=== PATIENT | female | born 1965 | race African-American/Black ===

== ENCOUNTER 2017-01-22 09:01 | Inpatient (IN) | payer OTHER ==
[2017-01-22 10:52] VITALS: BMI 19.6
--- NOTE | 2017-01-22 13:29 | HP ---
CIWA Score - CIWA Score Nausea/Vomitin-No Nausea/No Vomiting Muscle Tremors: 4-Moderate,w/Arms Extend Anxiety: 3 Agitation: 4-Moderately Restless Paroxysmal Sweats: 3 Orientation: 0-Oriented Tacttile Disturbances: 0-None Auditory Disturbances: 0-None Visual Disturbances: 0-None Headache: 1-Very Mild CIWA-Ar Total Score: 15 Admission ROS BHS - HPI Chief Complaint: I need to stop using and was 3yrs clean and need to have my life back. Allergies/Adverse Reactions: Allergies Allergy/AdvReac Type Severity Reaction Status Date / Time No Known Allergies Allergy Verified 01/22/17 11:39 History of Present Illness: pt is a 51yr old female with a history of alcohol and cocaine dependence seeking detox for treatment. Exam Limitations: Physical Impairment (b/l bunion to feet) - Ebola screening Have you traveled outside of the country in the last 21 days: No Have you had contact with anyone from an Ebola affected area: No Have you been sick,other than usual withdrawal symptoms: No Do you have a fever: No - Review of Systems Constitutional: Chills, Diaphoresis, Loss of Appetite, Night Sweats, Changes in sleep EENT: reports: Tearing, Nose Congestion Respiratory: reports: Cough Cardiac: reports: No Symptoms Reported GI: reports: Diarrhea, Poor Appetite, Poor Fluid Intake : reports: No Symptoms Reported Musculoskeletal: reports: Back Pain, Joint Pain, Muscle Pain Integumentary: reports: Flushing, Sweating Neuro: reports: Headache, Tingling, Tremors Endocrine: reports: Excessive Sweating, Flushing, Intolerance to Cold, Intolerance to Heat Hematology: reports: No Symptoms Reported Psychiatric: reports: Judgement Intact, Mood/Affect Appropiate, Orientated x3, Agitated, Anxious Other Systems: Reviewed and Negative Patient History - Patient Medical History Hx Anemia: No Hx Asthma: No Hx Chronic Obstructive Pulmonary Disease (COPD): No Hx Cancer: No Hx Cardiac Disorders: No Hx Hypertension: Yes (non compliant with meds.) Hx Hypercholesterolemia: No Hx Pacemaker: No HX Cerebrovascular Accident: No Hx Seizures: No Hx Dementia: No Hx Diabetes: No Hx Gastrointestinal Disorders: No Hx Liver Disease: No Hx Genitourinary Disorders: No Hx Sexually Transmitted Disorders: No Hx Renal Disease (ESRD): No Hx Thyroid Disease: No Hx Human Immunodeficiency Virus (HIV): No (negative) Hx Hepatitis C: No (negative) Hx Depression: Yes Hx Suicide Attempt: No (denies) Hx Bipolar Disorder: No Hx Schizophrenia: No - Patient Surgical History Past Surgical History: Yes Hx Abdominal Surgery: Yes (total hysterectomy in 2015 fibroids) Other Surgical History: R knee sx - PPD History Previous Implant?: Yes Documented Results: Positive w/o proof Implanted On Prior [facility] Admission?: No PPD to be Administered?: No - Reproductive History Patient is a Female of Child Bearing Age (11 -55 yrs old): No Patient : No - Smoking Cessation Smoking history: Current every day smoker Have you smoked in the past 12 months: Yes Aproximately how many cigarettes per day: 2 Hx Chewing Tobacco Use: No Initiated information on smoking cessation: Yes 'Breaking Loose' booklet given: 01/22/17 - Substance & Tx. History Hx Alcohol Use: Yes Hx Substance Use: Yes Substance Use Type: Alcohol, Cocaine Hx [facility] [address] [facility] - Substances Abused Alcohol Route: Oral Frequency: Daily Amount used: 2-3 pints vodka/ 2-3 40 oz beers Age of first use: 19 Date of Last Use: 01/21/17 Cocaine Route: Smoking Frequency: Daily Amount used: $100 Age of first use: 19 Date of Last Use: 01/21/17 Family Disease History - Family Disease History Family History: Denies Admission Physical Exam BHS - Vital Signs Vital Signs: Vital Signs - 24 hr 01/22/17 10:47 Temperature 96 F L Pulse Rate 90 Respiratory 16 Rate Blood Pressure 147/94 - Physical General Appearance: Yes: Appropriately Dressed, Moderate Distress, Thin, Tremorous, Irritable, Sweating, Anxious HEENTM: Yes: Normal Voice, Nasal Congestion, Rhinorrhea Respiratory: Yes: Lungs Clear, Normal Breath Sounds, No Respiratory Distress Neck: Yes: No masses,lesions,Nodules Breast: Yes: Within Normal Limits Cardiology: Yes: Regular Rhythm, Regular Rate, S1, S2 Abdominal: Yes: Normal Bowel Sounds, Non Tender, Soft Genitourinary: Yes: Within Normal Limits Back: Yes: Normal Inspection Musculoskeletal: Yes: full range of Motion Extremities: Yes: Normal Capillary Refill, Normal Inspection, Tremors Neurological: Yes: Fully Oriented, Alert, Normal Response Integumentary: Yes: Normal Color, Diaphoresis Lymphatic: Yes: Within Normal Limits - Diagnostic (1) Alcohol dependence with uncomplicated withdrawal Current Visit: Yes Status: Chronic (2) Bilateral bunions Current Visit: Yes Status: Chronic (3) Hypertension Current Visit: Yes Status: Chronic Qualifiers: Hypertension type: essential hypertension Qualified Code(s): I10 - Essential (primary) hypertension; I10 - Essential (primary) hypertension; I10 - Essential (primary) hypertension (4) Tinea pedis Current Visit: Yes Status: Acute Qualifiers: Laterality: bilateral Qualified Code(s): B35.3 - Tinea pedis; B35.3 - Tinea pedis Cleared for Admission S - Detox or Rehab [facility] Level of Care: Medically Managed Detox Regimen/Protocol: Librium [facility] Breath Alcohol Content Breath Alcohol Content: 0 Urine Pregancy Test - Result Urine Test Results: Negative- NO Line Present Urine Drug Screen - Results Drug Screen Negative: No Urine Drug Screen Results: THC-Marijuana, ELI-Cocaine, BZO-Benzodiazepines
[2017-01-22] MEDS ORDERED: diphenhydrAMINE HCL 50 MG CAPSULE PO PRN (13:30)
[2017-01-22] MEDS ORDERED: chlordiazePOXIDE HCL 25 MG CAPSULE PO PRN (13:30)
[2017-01-22] MEDS ORDERED: MAGNESIUM CITRATE 300 ML BOTTLE PO PRN (13:30)
[2017-01-22] MEDS ORDERED: ACETAMINOPHEN 325 MG TABLET (FP) PO PRN (13:30)
[2017-01-22] MEDS ORDERED: MAGNESIUM HYDROX 2400MG/30ML ORAL SUSPENSION 30 ML CUP PO PRN (13:30)
[2017-01-22] MEDS ORDERED: MENTHOL/PHENOL 1 EACH UD MM PRN (13:30)
[2017-01-22] MEDS ORDERED: NICOTINE POLACRILEX 4 MG GUM BUC PRN (13:30)
[2017-01-22] MEDS ORDERED: LOPERAMIDE HCL 2 MG CAPSULE PO PRN (13:30)
[2017-01-22] MEDS ORDERED: chlordiazePOXIDE HCL 25 MG CAPSULE PO ONE (14:11)
[2017-01-22] MEDS: LISINOPRIL 10 MG TABLET (FP) PO SCH (14:26)
[2017-01-22] MEDS: chlordiazePOXIDE HCL 25 MG CAPSULE PO SCH ×3 (16:47→22:14)
[2017-01-22] MEDS: IBUPROFEN 400 MG TABLET (FP) PO PRN (18:52)
[2017-01-22] MEDS: THIAMINE HCL 100 MG TABLET (FP) PO SCH (22:14)
[2017-01-22] MEDS: guaiFENesin/D-METHORPHAN HB 10 ML UNIT-DOSE CUPS PO PRN (22:14)
[2017-01-23] MEDS: P-EPHED 60MG/TRIPROLIDI 2.5MG TABLET PO PRN ×3 (01:04→10:48)
[2017-01-23] MEDS: chlordiazePOXIDE HCL 25 MG CAPSULE PO SCH ×4 (05:45→22:19)
[2017-01-23] MEDS: guaiFENesin/D-METHORPHAN HB 10 ML UNIT-DOSE CUPS PO PRN (05:47)
[2017-01-23 10:13] LABS: MCH 30.6 pg (25.7-33.7); MCHC 32.1 g/dl (32.0-36.0); MEAN CELL VOLUME 95.3 fl (80-96); MEAN PLT VOLUME 9.2 fl (7.5-11.1); PLATELET COUNT 280 K/MM3 (134-434); RDW 14.4 % (11.6-15.6); WHITE BLOOD COUNT 6.2 K/mm3 (4.0-10.0)
[2017-01-23 10:14] LABS: ANION GAP 7 (8-16); BILIRUBIN,TOTAL 0.5 mg/dL (0.2-1.0); CALCIUM 8.7 mg/dL (8.5-10.1); CO2 28 mmol/L (21-32); CREATININE 0.6 mg/dL (0.55-1.02); GLUCOSE,RANDOM 83 mg/dL (74-106); SGOT/AST 21 U/L (15-37); SGPT/ALT 23 U/L (12-78); TOT PROT 6.3 g/dl (6.4-8.2)
[2017-01-23 10:15] LABS: ALK PHOS 75 U/L (45-117)
[2017-01-23 10:18] LABS: URINE APPEARANCE SLCLOUDY; URINE BILIRUBIN NEGATIVE (NEGATIVE); URINE BLOOD 2+ (NEGATIVE); URINE COLOR YELLOW; URINE GLUCOSE (UA) NEGATIVE (NEGATIVE); URINE KETONE NEGATIVE (NEGATIVE); URINE NITRITE NEGATIVE (NEGATIVE); URINE PROTEIN NEGATIVE (NEGATIVE); URINE UROBILINOGEN NEGATIVE mg/dL (0.2-1.0)
[2017-01-23 10:39] LABS: URINE MUCUS RARE; URINE RBC 31 /hpf (0-3); URINE WBC 8 /hpf (3-5)
[2017-01-23] MEDS: LISINOPRIL 10 MG TABLET (FP) PO SCH (10:48)
[2017-01-23] MEDS: PRENATAL VITAMINS W/ FOLIC ACID TABLET (FP) PO SCH (10:48)
--- NOTE | 2017-01-23 11:23 | PN ---
S CIWA - CIWA Score Nausea/Vomitin-No Nausea/No Vomiting Muscle Tremors: 4-Moderate,w/Arms Extend Anxiety: 3 Agitation: 4-Moderately Restless Paroxysmal Sweats: 3 Orientation: 0-Oriented Tacttile Disturbances: 0-None Auditory Disturbances: 0-None Visual Disturbances: 0-None Headache: 0-None Present CIWA-Ar Total Score: 14 BHS Progress Note (SOAP) Subjective: shakes sweats interrupted sleep agitation body aches Objective: 01/23/17 11:22 Vital Signs Temperature 97.7 F 01/23/17 09:31 Pulse Rate 89 01/23/17 09:31 Respiratory Rate 16 01/23/17 09:31 Blood Pressure 129/91 01/23/17 09:31 O2 Sat by Pulse Oximetry (%) Laboratory Tests 01/23/17 01/23/17 01/23/17 07:00 07:00 08:00 WBC 6.2 RBC 4.17 Hgb 12.8 Hct 39.7 MCV 95.3 MCH 30.6 MCHC 32.1 RDW 14.4 Plt Count 280 MPV 9.2 Sodium 138 Potassium 4.4 Chloride 103 Carbon Dioxide 28 Anion Gap 7 L BUN 8 Creatinine 0.6 Creat Clearance w eGFR > 60 Random Glucose 83 Calcium 8.7 Total Bilirubin 0.5 AST 21 ALT 23 Alkaline Phosphatase 75 Total Protein 6.3 L Albumin 3.0 L Urine Color Yellow Urine Appearance Slcloudy Urine pH 6.0 Urine Protein Negative Urine Glucose (UA) Negative Urine Ketones Negative Urine Blood 2+ H Urine Nitrite Negative Urine Bilirubin Negative Urine Urobilinogen Negative Urine RBC 31 Urine WBC 8 Ur Epithelial Cells Rare Urine Mucus Rare aaox3 ambulating no acute distress Assessment: 01/23/17 11:23 withdrawal sx Plan: continue detox increase fluids
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
[2017-01-23] MEDS: GABAPENTIN 300 MG CAPSULE (FP) PO SCH ×2 (12:01→22:19)
[2017-01-23] MEDS: VITAMINS A AND D TOPICAL OINTMENT 60 GM TUBE TP SCH ×3 (12:02→23:11)
[2017-01-23] MEDS: MAG HYDROX/AL HYDROX/SIMETH 30 ML UNIT-DOSE CUP PO PRN (14:11)
[2017-01-23 18:25] LABS: URINE LEUK ESTERASE Negative (NEGATIVE)
[2017-01-23] MEDS: THIAMINE HCL 100 MG TABLET (FP) PO SCH (22:19)
[2017-01-23] MEDS: QUEtiapine FUMARATE 100 MG TABLET (FP) PO SCH (22:21)
[2017-01-24] MEDS: chlordiazePOXIDE HCL 25 MG CAPSULE PO SCH ×2 (06:03→10:42)
[2017-01-24] MEDS: VITAMINS A AND D TOPICAL OINTMENT 60 GM TUBE TP SCH ×3 (06:03→17:38)
[2017-01-24] MEDS: IBUPROFEN 400 MG TABLET (FP) PO PRN ×2 (06:06→15:18)
--- NOTE | 2017-01-24 09:53 | PN ---
[facility] CIWA - CIWA Score Nausea/Vomitin-No Nausea/No Vomiting Muscle Tremors: 3 Anxiety: 3 Agitation: 4-Moderately Restless Paroxysmal Sweats: 2 Orientation: 0-Oriented Tacttile Disturbances: 0-None Auditory Disturbances: 0-None Visual Disturbances: 1-Very Mild Sensitivity Headache: 0-None Present CIWA-Ar Total Score: 13 S Progress Note (SOAP) Subjective: Alert, Interrupted sleep, night sweats, body aches, anxiety, restless Objective: 01/24/17 09:51 Vital Signs Temperature 97.0 F L 01/24/17 06:30 Pulse Rate 92 H 01/24/17 06:30 Respiratory Rate 16 01/24/17 06:30 Blood Pressure 109/78 01/24/17 06:30 O2 Sat by Pulse Oximetry (%) Laboratory Last Values WBC 6.2 K/mm3 (4.0-10.0) 01/23/17 07:00 RBC 4.17 M/mm3 (3.60-5.2) 01/23/17 07:00 Hgb 12.8 GM/dL (10.7-15.3) 01/23/17 07:00 Hct 39.7 % (32.4-45.2) 01/23/17 07:00 MCV 95.3 fl (80-96) 01/23/17 07:00 MCH 30.6 pg (25.7-33.7) 01/23/17 07:00 MCHC 32.1 g/dl (32.0-36.0) 01/23/17 07:00 RDW 14.4 % (11.6-15.6) 01/23/17 07:00 Plt Count 280 K/MM3 (134-434) 01/23/17 07:00 MPV 9.2 fl (7.5-11.1) 01/23/17 07:00 Sodium 138 mmol/L (136-145) 01/23/17 07:00 Potassium 4.4 mmol/L (3.5-5.1) 01/23/17 07:00 Chloride 103 mmol/L (98-107) 01/23/17 07:00 Carbon Dioxide 28 mmol/L (21-32) 01/23/17 07:00 Anion Gap 7 (8-16) L 01/23/17 07:00 BUN 8 mg/dL (7-18) 01/23/17 07:00 Creatinine 0.6 mg/dL (0.55-1.02) 01/23/17 07:00 Creat Clearance w eGFR > 60 (>60) 01/23/17 07:00 Random Glucose 83 mg/dL (74-106) 01/23/17 07:00 Calcium 8.7 mg/dL (8.5-10.1) 01/23/17 07:00 Total Bilirubin 0.5 mg/dL (0.2-1.0) 01/23/17 07:00 AST 21 U/L (15-37) 01/23/17 07:00 ALT 23 U/L (12-78) 01/23/17 07:00 Alkaline Phosphatase 75 U/L (45-117) 01/23/17 07:00 Total Protein 6.3 g/dl (6.4-8.2) L 01/23/17 07:00 Albumin 3.0 g/dl (3.4-5.0) L 01/23/17 07:00 Urine Color Yellow 01/23/17 08:00 Urine Appearance Slcloudy 01/23/17 08:00 Urine pH 6.0 (5.0-8.0) 01/23/17 08:00 Ur Specific [place] 1.025 (1.005-1.025) 01/23/17 08:00 Urine Protein Negative (NEGATIVE) 01/23/17 08:00 Urine Glucose (UA) Negative (NEGATIVE) 01/23/17 08:00 Urine Ketones Negative (NEGATIVE) 01/23/17 08:00 Urine Blood 2+ (NEGATIVE) H 01/23/17 08:00 Urine Nitrite Negative (NEGATIVE) 01/23/17 08:00 Urine Bilirubin Negative (NEGATIVE) 01/23/17 08:00 Urine Urobilinogen Negative mg/dL (0.2-1.0) 01/23/17 08:00 Ur Leukocyte Esterase Negative (NEGATIVE) 01/23/17 08:00 Urine RBC 31 /hpf (0-3) 01/23/17 08:00 Urine WBC 8 /hpf (3-5) 01/23/17 08:00 Ur Epithelial Cells Rare /hpf (FEW) 01/23/17 08:00 Urine Mucus Rare 01/23/17 08:00 RPR Titer Nonreactive (NONREACTIVE) 01/23/17 07:00 Labs noted. Oral fluid intake encouraged. Assessment: 01/24/17 09:53 Withdrawal sx Plan: Continue detox Increased fluid intake encouraged
--- NOTE | 2017-01-24 10:07 | EKG ---
Test Reason : Blood Pressure : / mmHG Vent. Rate : 076 BPM Atrial Rate : 076 BPM P-R Int : 136 ms QRS Dur : 084 ms QT Int : 400 ms P-R-T Axes : 044 034 046 degrees QTc Int : 450 ms NORMAL SINUS RHYTHM NORMAL ECG NO PREVIOUS ECGS AVAILABLE Confirmed by CORRINA CALIXTO, FELICIA ([id number]) on 01/24/2017 10:07:20 AM Referred By: Confirmed By:FELICIA HOUSER MD
[2017-01-24] MEDS: GABAPENTIN 300 MG CAPSULE (FP) PO SCH ×2 (10:42→22:03)
[2017-01-24] MEDS: LISINOPRIL 10 MG TABLET (FP) PO SCH (10:42)
[2017-01-24] MEDS: PRENATAL VITAMINS W/ FOLIC ACID TABLET (FP) PO SCH (10:42)
[2017-01-24] MEDS: TOLNAFTATE 1% CREAM 15 GM TUBE TP SCH ×2 (10:43→23:00)
[2017-01-24] MEDS: guaiFENesin/D-METHORPHAN HB 10 ML UNIT-DOSE CUPS PO PRN (10:46)
[2017-01-24] MEDS: P-EPHED 60MG/TRIPROLIDI 2.5MG TABLET PO PRN ×2 (10:47→22:05)
[2017-01-24] MEDS: chlordiazePOXIDE 5 MG CAPSULE PO SCH ×2 (17:20→22:02)
[2017-01-24] MEDS: THIAMINE HCL 100 MG TABLET (FP) PO SCH (22:02)
[2017-01-24] MEDS: QUEtiapine FUMARATE 100 MG TABLET (FP) PO SCH (22:03)
[2017-01-25] MEDS: VITAMINS A AND D TOPICAL OINTMENT 60 GM TUBE TP SCH ×5 (00:20→23:16)
[2017-01-25] MEDS: chlordiazePOXIDE 5 MG CAPSULE PO SCH ×2 (06:03→10:23)
[2017-01-25] MEDS: SODIUM CHLORIDE NASAL SPRAY 44 ML BOTTLE NS PRN ×2 (06:05→17:35)
[2017-01-25] MEDS: P-EPHED 60MG/TRIPROLIDI 2.5MG TABLET PO PRN ×2 (06:10→17:35)
--- NOTE | 2017-01-25 09:35 | PN ---
BHS Progress Note (SOAP) Subjective: feeling so much better little anxiety Objective: 01/25/17 09:36 Vital Signs Temperature 97.3 F L 01/25/17 06:00 Pulse Rate 97 H 01/25/17 06:00 Respiratory Rate 18 01/25/17 06:00 Blood Pressure 109/83 01/25/17 06:00 O2 Sat by Pulse Oximetry (%) aaox3 ambulating no acute distress Assessment: 01/25/17 09:36 withdrawal sx Plan: continue detox increase fluids d/c in am
[2017-01-25] MEDS: LISINOPRIL 10 MG TABLET (FP) PO SCH (10:23)
[2017-01-25] MEDS: PRENATAL VITAMINS W/ FOLIC ACID TABLET (FP) PO SCH (10:23)
[2017-01-25] MEDS: hydrOXYzine PAMOATE 50 MG CAPSULE (FP) PO PRN ×2 (10:23→18:12)
[2017-01-25] MEDS: GABAPENTIN 300 MG CAPSULE (FP) PO SCH ×2 (10:23→22:22)
[2017-01-25] MEDS: TOLNAFTATE 1% CREAM 15 GM TUBE TP SCH ×2 (10:24→22:23)
[2017-01-25] MEDS: chlordiazePOXIDE HCL 10 MG CAPSULE PO SCH ×2 (16:26→22:22)
[2017-01-25] MEDS: MAG HYDROX/AL HYDROX/SIMETH 30 ML UNIT-DOSE CUP PO PRN (16:27)
[2017-01-25] MEDS: IBUPROFEN 400 MG TABLET (FP) PO PRN (17:35)
[2017-01-25] MEDS: QUEtiapine FUMARATE 100 MG TABLET (FP) PO SCH (22:22)
[2017-01-25] MEDS: THIAMINE HCL 100 MG TABLET (FP) PO SCH (22:23)
[2017-01-26] MEDS: chlordiazePOXIDE HCL 10 MG CAPSULE PO SCH ×2 (05:58→11:16)
[2017-01-26] MEDS: VITAMINS A AND D TOPICAL OINTMENT 60 GM TUBE TP SCH ×2 (05:59→11:17)
[2017-01-26] MEDS: P-EPHED 60MG/TRIPROLIDI 2.5MG TABLET PO PRN (06:13)
[2017-01-26] MEDS: PRENATAL VITAMINS W/ FOLIC ACID TABLET (FP) PO SCH (09:25)
[2017-01-26] MEDS: GABAPENTIN 300 MG CAPSULE (FP) PO SCH (09:25)
[2017-01-26] MEDS: LISINOPRIL 10 MG TABLET (FP) PO SCH (09:25)
[2017-01-26] MEDS: TOLNAFTATE 1% CREAM 15 GM TUBE TP SCH (09:27)
[2017-01-26 09:42] VITALS: BP 144/91; PULSE 89; TEMP 98.5
--- NOTE | 2017-01-26 10:09 | DS ---
[facility] Detox Discharge Summary Admission Date: 01/22/17 Discharge Date: 01/26/17 - History Present History: Alcohol Dependence, Cannabis Dependence - Physical Exam Results Vital Signs: Vital Signs Temperature 98.5 F 01/26/17 09:41 Pulse Rate 89 01/26/17 09:41 Respiratory Rate 19 01/26/17 09:41 Blood Pressure 144/91 01/26/17 09:41 O2 Sat by Pulse Oximetry (%) - Treatment Hospital Course: Detox Protocol Followed, Detoxed Safely, Responded well, Discharged Condition Good, Rehab Referral Accepted - Medication Discharge Medications: Ambulatory Orders Gabapentin [Neurontin] 600 mg PO BID 01/22/17 Lisinopril 10 mg PO DAILY 01/22/17 Quetiapine Fumarate [Seroquel] 100 mg PO HS #30 tablet 01/23/17 - Diagnosis (1) Alcohol dependence with uncomplicated withdrawal Current Visit: Yes Status: Chronic (2) Bilateral bunions Current Visit: Yes Status: Chronic (3) Hypertension Current Visit: Yes Status: Chronic Qualifiers: Hypertension type: essential hypertension Qualified Code(s): I10 - Essential (primary) hypertension; I10 - Essential (primary) hypertension; I10 - Essential (primary) hypertension (4) Tinea pedis Current Visit: Yes Status: Chronic Qualifiers: Laterality: bilateral Qualified Code(s): B35.3 - Tinea pedis; B35.3 - Tinea pedis - AMA Did Patient Leave Against Medical Advice: No (rehab at [facility])
== END 2017-01-26 11:55 | disposition home or self-care (01) | DRG 774 ==
LOC: YASAS 09:01 → Y6N 12:25
PROVIDERS: ADMIT Internal Medicine; ATTEND Internal Medicine
PROC: HZ2ZZZZ Detoxification Services for Substance Abuse Treatment (ICD-10-PCS; principal; 2017-01-22)
DX: F10.230 Alcohol dependence with withdrawal, uncomplicated (principal); F14.20 Cocaine dependence, uncomplicated; F12.20 Cannabis dependence, uncomplicated; F17.210 Nicotine dependence, cigarettes, uncomplicated; F19.24 Other psychoactive substance dependence with psychoactive substance-induced mood disorder; I10 Essential (primary) hypertension; B35.3 Tinea pedis; G47.00 Insomnia, unspecified; M21.612 Bunion of left foot; M21.611 Bunion of right foot; Z91.14 Patient's other noncompliance with medication regimen; Z90.710 Acquired absence of both cervix and uterus; Z59.0 Homelessness
CPT/HCPCS: 36415; 71020-TC; 80053; 81003; 81015; 85027; 86593; 93005; 93010

== ENCOUNTER 2017-04-21 10:53 | Inpatient (IN) | payer OTHER ==
[2017-04-21 11:50] VITALS: BMI 20.5
--- NOTE | 2017-04-21 13:05 | HP ---
CIWA Score - CIWA Score Nausea/Vomitin-Mild Nausea/No Vomiting Muscle Tremors: 3 Anxiety: 4-Mod. Anxious/Guarded Agitation: 1-Slight > Activity Paroxysmal Sweats: No Perspiration Orientation: 1-Uncertain about Date Tacttile Disturbances: 1-Very Mild Itch/Numbness Auditory Disturbances: 1-Very Mild Visual Disturbances: 1-Very Mild Sensitivity Headache: 1-Very Mild CIWA-Ar Total Score: 14 Admission ROS BHS - HPI Chief Complaint: I want help, to stop using, I need a few days of detox Allergies/Adverse Reactions: Allergies Allergy/AdvReac Type Severity Reaction Status Date / Time No Known Allergies Allergy Verified 04/21/17 14:04 History of Present Illness: 52 yo woman here for detox from alcohol - was in [facility] ED recently - unclear if she was in patient - first she said she was in for several days, then she said she was just in the ED, then she said she was in the hospital but was drinking while she was there - no seizures but does have black outs. Exam Limitations: Clinical Condition - Ebola screening Have you traveled outside of the country in the last 21 days: No Have you had contact with anyone from an Ebola affected area: No Have you been sick,other than usual withdrawal symptoms: No Do you have a fever: No - Review of Systems Constitutional: Malaise EENT: reports: No Symptoms Reported Respiratory: reports: No Symptoms reported Cardiac: reports: Chest Tightness GI: reports: Nausea, Poor Appetite, Indigestion : reports: Frequency Musculoskeletal: reports: Back Pain, Muscle Pain Integumentary: reports: No Symptoms Reported Neuro: reports: Headache Endocrine: reports: No Symptoms Reported Hematology: reports: No Symptoms Reported Psychiatric: reports: Judgement Intact, Mood/Affect Appropiate, Orientated x3, Anxious Other Systems: Reviewed and Negative Patient History - Patient Medical History Hx Anemia: No Hx Asthma: No Hx Chronic Obstructive Pulmonary Disease (COPD): No Hx Cancer: No Hx Cardiac Disorders: No Hx Hypertension: Yes (non compliant with meds.) Hx Hypercholesterolemia: No Hx Pacemaker: No HX Cerebrovascular Accident: No Hx Seizures: No Hx Dementia: No Hx Diabetes: No Hx Gastrointestinal Disorders: No Hx Liver Disease: No Hx Genitourinary Disorders: No Hx Sexually Transmitted Disorders: No Hx Renal Disease (ESRD): No Hx Thyroid Disease: No Hx Human Immunodeficiency Virus (HIV): No (negative) Hx Hepatitis C: No (negative) Hx Depression: Yes Hx Suicide Attempt: No (denies) Hx Bipolar Disorder: No Hx Schizophrenia: No Other Medical History: PPD+ treated x 6 months 1983 - cxr negative 01/23/17 - Patient Surgical History Past Surgical History: Yes Hx Abdominal Surgery: Yes (total hysterectomy in 2015 fibroids) Other Surgical History: R knee sx - PPD History Previous Implant?: Yes Documented Results: Positive w/o proof Date: 04/16/83 (treated six months inh) PPD to be Administered?: No - Reproductive History Patient is a Female of Child Bearing Age (11 -55 yrs old): Yes Patient : No - Smoking Cessation Smoking history: Current every day smoker Have you smoked in the past 12 months: Yes Aproximately how many cigarettes per day: 2 Hx Chewing Tobacco Use: No Initiated information on smoking cessation: Yes 'Breaking Loose' booklet given: 04/21/17 (give on floor) - Substance & Tx. History Hx Alcohol Use: Yes Hx Substance Use: Yes Substance Use Type: Alcohol, Cocaine, Heroin Hx Substance Use Treatment: Yes (detox, rehab) - Substances Abused Alcohol Route: Oral Frequency: Daily Amount used: 2 pints Age of first use: 19 Date of Last Use: 04/20/17 Crack Route: Smoking Frequency: 3-6 times per week Amount used: $30 Age of first use: 19 Date of Last Use: 04/20/17 percocet Route: Oral Frequency: 1-2 times per week Amount used: 10mg Age of first use: 19 Date of Last Use: 04/20/17 Marijuana/Hashish Frequency: 1-2 times per week Amount used: 1 joint Age of first use: 19 Date of Last Use: 04/20/17 Family Disease History - Family Disease History Family Disease History: Other: Father (, etoh), Mother (, drug overdose), Brother (two - healthy) Admission Physical Exam [facility] - Vital Signs Vital Signs: Vital Signs - 24 hr 04/21/17 11:45 Temperature 97.5 F L Pulse Rate 85 Respiratory 18 Rate Blood Pressure 139/90 - Physical General Appearance: Yes: Nourished, Appropriately Dressed, Moderate Distress, Thin, Anxious HEENTM: Yes: Hearing grossly Normal, Normocephalic, Normal Voice, Pharynx Normal Respiratory: Yes: Normal Breath Sounds, No Respiratory Distress Neck: Yes: No masses,lesions,Nodules, Supple Breast: Yes: Breast Exam Deferred Cardiology: Yes: Regular Rhythm, Regular Rate Abdominal: Yes: Flat, Soft Genitourinary: Yes: Frequency Back: Yes: Normal Inspection Musculoskeletal: Yes: full range of Motion, Gait Steady, Back pain Extremities: Yes: Normal Capillary Refill, Normal Inspection, Normal Range of Motion Neurological: Yes: Fully Oriented, Alert, Motor Strength 5/5, Normal Mood/Affect , Normal Response Integumentary: Yes: Normal Color, Dry, Warm Lymphatic: Yes: Within Normal Limits - Diagnostic (1) Alcohol dependence with uncomplicated withdrawal Current Visit: Yes Status: Chronic (2) Marihuana dependence Current Visit: Yes Status: Acute (3) Hypertension Current Visit: Yes Status: Chronic Qualifiers: Hypertension type: essential hypertension Qualified Code(s): I10 - Essential (primary) hypertension (4) Cocaine dependence Current Visit: Yes Status: Acute Qualifiers: Substance use status: uncomplicated Qualified Code(s): F14.20 - Cocaine dependence, uncomplicated (5) Nicotine dependence Current Visit: Yes Status: Acute Qualifiers: Nicotine product type: cigarettes Substance use status: uncomplicated Qualified Code(s): F17.210 - Nicotine dependence, cigarettes, uncomplicated (6) PPD positive, treated Current Visit: Yes Status: Chronic Comment: states treated 1983; cxr negative 01/23/2017 Cleared for Admission [facility] - Detox or Rehab [facility] Level of Care: Medically Managed Detox Regimen/Protocol: Librium [facility] Breath Alcohol Content Breath Alcohol Content: 0 Urine Pregancy Test - Result Urine Test Results: Negative- NO Line Present Urine Drug Screen - Results Drug Screen Negative: No Urine Drug Screen Results: THC-Marijuana, ELI-Cocaine, OXY-Oxycodone
[2017-04-21] MEDS ORDERED: IBUPROFEN 400 MG TABLET (FP) PO PRN (13:26)
[2017-04-21] MEDS ORDERED: MAGNESIUM HYDROX 2400MG/30ML ORAL SUSPENSION 30 ML CUP PO PRN (13:26)
[2017-04-21] MEDS ORDERED: P-EPHED 60MG/TRIPROLIDI 2.5MG TABLET PO PRN (13:26)
[2017-04-21] MEDS ORDERED: MENTHOL/PHENOL 1 EACH UD MM PRN (13:26)
[2017-04-21] MEDS ORDERED: guaiFENesin/D-METHORPHAN HB 10 ML UNIT-DOSE CUPS PO PRN (13:26)
[2017-04-21] MEDS ORDERED: ACETAMINOPHEN 325 MG TABLET (FP) PO PRN (13:26)
[2017-04-21] MEDS ORDERED: hydrOXYzine PAMOATE 25 MG CAPSULE (FP) PO PRN (13:26)
[2017-04-21] MEDS ORDERED: MAGNESIUM CITRATE 300 ML BOTTLE PO PRN (13:26)
[2017-04-21] MEDS ORDERED: LOPERAMIDE HCL 2 MG CAPSULE PO PRN (13:26)
[2017-04-21] MEDS ORDERED: chlordiazePOXIDE HCL 25 MG CAPSULE PO PRN (13:26)
[2017-04-21] MEDS ORDERED: NICOTINE 14 MG/24 HOURS TOPICAL PATCH TD SCH (13:30)
[2017-04-21] MEDS ORDERED: chlordiazePOXIDE HCL 25 MG CAPSULE PO ONE (14:30)
[2017-04-21] MEDS: chlordiazePOXIDE HCL 25 MG CAPSULE PO SCH ×2 (17:29→22:36)
[2017-04-21] MEDS: MAG HYDROX/AL HYDROX/SIMETH 30 ML UNIT-DOSE CUP PO PRN (19:59)
[2017-04-21 22:13] LABS: URINE APPEARANCE SLCLOUDY; URINE BILIRUBIN NEGATIVE (NEGATIVE); URINE BLOOD 2+ (NEGATIVE); URINE COLOR YELLOW; URINE GLUCOSE (UA) NEGATIVE (NEGATIVE); URINE KETONE NEGATIVE (NEGATIVE); URINE LEUK ESTERASE 1+ (NEGATIVE); URINE NITRITE NEGATIVE (NEGATIVE); URINE PROTEIN NEGATIVE (NEGATIVE); URINE UROBILINOGEN NEGATIVE mg/dL (0.2-1.0)
[2017-04-21 22:24] LABS: EPI CELLS MODERATE /HPF (FEW); GRANULAR CASTS 1 /lpf; URINE BACTERIA RARE /hpf (NONE SEEN); URINE HYALINE CAST 2 /lpf; URINE MUCUS RARE
[2017-04-21] MEDS: THIAMINE HCL 100 MG TABLET (FP) PO SCH (22:36)
[2017-04-22] MEDS: chlordiazePOXIDE HCL 25 MG CAPSULE PO SCH ×4 (06:04→22:25)
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
[2017-04-22 10:18] LABS: HEMATOCRIT 42.6 % (32.4-45.2); HEMOGLOBIN 13.8 GM/dL (10.7-15.3); MCH 30.4 pg (25.7-33.7); MCHC 32.4 g/dl (32.0-36.0); MEAN CELL VOLUME 93.9 fl (80-96); MEAN PLT VOLUME 9.5 fl (7.5-11.1); PLATELET COUNT 242 K/MM3 (134-434); RBC 4.53 M/mm3 (3.60-5.2); RDW 14.6 % (11.6-15.6); WHITE BLOOD COUNT 5.3 K/mm3 (4.0-10.0)
[2017-04-22 10:22] LABS: ANION GAP 7 (8-16); BLOOD UREA NITROGEN 15 mg/dL (7-18); CALCIUM 9.2 mg/dL (8.5-10.1); CHLORIDE 102 mmol/L (98-107); CO2 28 mmol/L (21-32); GLUCOSE,RANDOM 82 mg/dL (74-106); SODIUM 137 mmol/L (136-145)
[2017-04-22 10:26] LABS: ALK PHOS 72 U/L (45-117); BILIRUBIN,TOTAL 0.8 mg/dL (0.2-1.0); CREATININE 0.9 mg/dL (0.55-1.02); SGOT/AST 29 U/L (15-37); SGPT/ALT 41 U/L (12-78); TOT PROT 7.5 g/dl (6.4-8.2)
[2017-04-22] MEDS: PRENATAL VITAMINS W/ FOLIC ACID TABLET (FP) PO SCH (10:29)
[2017-04-22] MEDS: LISINOPRIL 10 MG TABLET (FP) PO SCH (10:30)
--- NOTE | 2017-04-22 11:39 | EKG ---
Test Reason : Blood Pressure : / mmHG Vent. Rate : 075 BPM Atrial Rate : 073 BPM P-R Int : 146 ms QRS Dur : 074 ms QT Int : 380 ms P-R-T Axes : 047 065 091 degrees QTc Int : 424 ms UNDETERMINED RHYTHM NONSPECIFIC ST AND T WAVE ABNORMALITY ABNORMAL ECG Confirmed by ZHEN BERRY MD ([id number]) on 04/22/2017 11:39:15 AM Referred By: Confirmed By:ZHEN BERRY MD
[2017-04-22] MEDS: PETROLATUM, WHITE 30 GM TUBE TP SCH (11:44)
[2017-04-22] MEDS: GABAPENTIN 300 MG CAPSULE (FP) PO SCH ×2 (13:32→22:25)
--- NOTE | 2017-04-22 13:44 | PN ---
[facility] CIWA - CIWA Score Nausea/Vomitin-No Nausea/No Vomiting Muscle Tremors: 3 Anxiety: 3 Agitation: 3 Paroxysmal Sweats: 1-Minimal Palms Moist Orientation: 0-Oriented Tacttile Disturbances: 0-None Auditory Disturbances: 0-None Visual Disturbances: 0-None Headache: 0-None Present CIWA-Ar Total Score: 10 S Progress Note (SOAP) Subjective: sweating irritable agitation Objective: 04/22/17 13:49 Vital Signs Temperature 100.6 F H 04/22/17 10:00 Pulse Rate 108 H 04/22/17 10:00 Respiratory Rate 18 04/22/17 10:00 Blood Pressure 140/85 04/22/17 10:00 O2 Sat by Pulse Oximetry (%) Laboratory Last Values WBC 5.3 K/mm3 (4.0-10.0) 04/22/17 07:40 RBC 4.53 M/mm3 (3.60-5.2) 04/22/17 07:40 Hgb 13.8 GM/dL (10.7-15.3) 04/22/17 07:40 Hct 42.6 % (32.4-45.2) 04/22/17 07:40 MCV 93.9 fl (80-96) 04/22/17 07:40 MCH 30.4 pg (25.7-33.7) 04/22/17 07:40 MCHC 32.4 g/dl (32.0-36.0) 04/22/17 07:40 RDW 14.6 % (11.6-15.6) 04/22/17 07:40 Plt Count 242 K/MM3 (134-434) 04/22/17 07:40 MPV 9.5 fl (7.5-11.1) 04/22/17 07:40 Sodium 137 mmol/L (136-145) 04/22/17 07:40 Potassium 4.0 mmol/L (3.5-5.1) 04/22/17 07:40 Chloride 102 mmol/L (98-107) 04/22/17 07:40 Carbon Dioxide 28 mmol/L (21-32) 04/22/17 07:40 Anion Gap 7 (8-16) L 04/22/17 07:40 BUN 15 mg/dL (7-18) D 04/22/17 07:40 Creatinine 0.9 mg/dL (0.55-1.02) D 04/22/17 07:40 Creat Clearance w eGFR > 60 (>60) 04/22/17 07:40 Random Glucose 82 mg/dL (74-106) 04/22/17 07:40 Calcium 9.2 mg/dL (8.5-10.1) 04/22/17 07:40 Total Bilirubin 0.8 mg/dL (0.2-1.0) D 04/22/17 07:40 AST 29 U/L (15-37) D 04/22/17 07:40 ALT 41 U/L (12-78) D 04/22/17 07:40 Alkaline Phosphatase 72 U/L (45-117) 04/22/17 07:40 Total Protein 7.5 g/dl (6.4-8.2) 04/22/17 07:40 Albumin 4.0 g/dl (3.4-5.0) D 04/22/17 07:40 Urine Color Yellow 04/21/17 21:00 Urine Appearance Slcloudy 04/21/17 21:00 Urine pH 6.0 (5.0-8.0) 04/21/17 21:00 Ur Specific [place] 1.017 (1.001-1.035) 04/21/17 21:00 Urine Protein Negative (NEGATIVE) 04/21/17 21:00 Urine Glucose (UA) Negative (NEGATIVE) 04/21/17 21:00 Urine Ketones Negative (NEGATIVE) 04/21/17 21:00 Urine Blood 2+ (NEGATIVE) H 04/21/17 21:00 Urine Nitrite Negative (NEGATIVE) 04/21/17 21:00 Urine Bilirubin Negative (NEGATIVE) 04/21/17 21:00 Urine Urobilinogen Negative mg/dL (0.2-1.0) 04/21/17 21:00 Ur Leukocyte Esterase 1+ (NEGATIVE) H 04/21/17 21:00 Urine WBC (Auto) 9 /hpf (3-5) 04/21/17 21:00 Urine RBC (Auto) 5 /hpf (0-3) 04/21/17 21:00 Ur Epithelial Cells Moderate /HPF (FEW) 04/21/17 21:00 Urine Bacteria Rare /hpf (NONE SEEN) 04/21/17 21:00 Hyaline Casts 2 /lpf 04/21/17 21:00 Granular Casts 1 /lpf 04/21/17 21:00 Urine Mucus Rare 04/21/17 21:00 RPR Titer Nonreactive (NONREACTIVE) 04/22/17 07:40 HIV 1&2 Antibody Screen Negative 04/22/17 07:40 HIV P24 Antigen Negative 04/22/17 07:40 lab noted Assessment: 04/22/17 13:49 withdrawal sx Plan: continue detox
[2017-04-22] MEDS ORDERED: GABAPENTIN 300 MG CAPSULE (FP) PO SCH (14:00)
[2017-04-22] MEDS: MAG HYDROX/AL HYDROX/SIMETH 30 ML UNIT-DOSE CUP PO PRN (19:59)
[2017-04-22] MEDS: traZODone HCL 100 MG TABLET (FP) PO SCH (22:25)
[2017-04-22] MEDS: THIAMINE HCL 100 MG TABLET (FP) PO SCH (22:25)
[2017-04-23] MEDS: GABAPENTIN 300 MG CAPSULE (FP) PO SCH ×3 (05:46→22:10)
[2017-04-23] MEDS: chlordiazePOXIDE HCL 25 MG CAPSULE PO SCH ×2 (05:47→11:21)
[2017-04-23] MEDS: PRENATAL VITAMINS W/ FOLIC ACID TABLET (FP) PO SCH (10:38)
[2017-04-23] MEDS: LISINOPRIL 10 MG TABLET (FP) PO SCH (10:39)
--- NOTE | 2017-04-23 11:18 | PN ---
S CIWA - CIWA Score Nausea/Vomitin-No Nausea/No Vomiting Muscle Tremors: 4-Moderate,w/Arms Extend Anxiety: 3 Agitation: 3 Paroxysmal Sweats: 3 Orientation: 0-Oriented Tacttile Disturbances: 0-None Auditory Disturbances: 0-None Visual Disturbances: 0-None Headache: 0-None Present CIWA-Ar Total Score: 13 S Progress Note (SOAP) Subjective: anxiety sweats interrupted sleep shakes Objective: 04/23/17 11:19 Vital Signs Temperature 98 F 04/23/17 06:13 Pulse Rate 99 H 04/23/17 06:13 Respiratory Rate 18 04/23/17 06:13 Blood Pressure 109/76 04/23/17 06:13 O2 Sat by Pulse Oximetry (%) Laboratory Tests 04/21/17 04/22/17 04/22/17 21:00 07:40 07:40 WBC 5.3 RBC 4.53 Hgb 13.8 Hct 42.6 MCV 93.9 MCH 30.4 MCHC 32.4 RDW 14.6 Plt Count 242 MPV 9.5 Sodium 137 Potassium 4.0 Chloride 102 Carbon Dioxide 28 Anion Gap 7 L BUN 15 D Creatinine 0.9 D Creat Clearance w eGFR > 60 Random Glucose 82 Calcium 9.2 Total Bilirubin 0.8 D AST 29 D ALT 41 D Alkaline Phosphatase 72 Total Protein 7.5 Albumin 4.0 D Urine Color Yellow Urine Appearance Slcloudy Urine pH 6.0 Ur Specific [place] 1.017 Urine Protein Negative Urine Glucose (UA) Negative Urine Ketones Negative Urine Blood 2+ H Urine Nitrite Negative Urine Bilirubin Negative Urine Urobilinogen Negative Ur Leukocyte Esterase 1+ H Urine WBC (Auto) 9 Urine RBC (Auto) 5 Ur Epithelial Cells Moderate Urine Bacteria Rare Hyaline Casts 2 Granular Casts 1 Urine Mucus Rare RPR Titer HIV 1&2 Antibody Screen HIV P24 Antigen 04/22/17 04/22/17 07:40 07:40 WBC RBC Hgb Hct MCV MCH MCHC RDW Plt Count MPV Sodium Potassium Chloride Carbon Dioxide Anion Gap BUN Creatinine Creat Clearance w eGFR Random Glucose Calcium Total Bilirubin AST ALT Alkaline Phosphatase Total Protein Albumin Urine Color Urine Appearance Urine pH Ur Specific [place] Urine Protein Urine Glucose (UA) Urine Ketones Urine Blood Urine Nitrite Urine Bilirubin Urine Urobilinogen Ur Leukocyte Esterase Urine WBC (Auto) Urine RBC (Auto) Ur Epithelial Cells Urine Bacteria Hyaline Casts Granular Casts Urine Mucus RPR Titer Nonreactive HIV 1&2 Antibody Screen Negative HIV P24 Antigen Negative aaox3 ambulating no acute distress Assessment: 04/23/17 11:19 withdrawal sx Plan: continue detox increase fluids
[2017-04-23] MEDS: PETROLATUM, WHITE 30 GM TUBE TP SCH (11:22)
--- NOTE | 2017-04-23 12:47 | EKG ---
Test Reason : Blood Pressure : / mmHG Vent. Rate : 082 BPM Atrial Rate : 082 BPM P-R Int : 142 ms QRS Dur : 078 ms QT Int : 412 ms P-R-T Axes : 051 063 084 degrees QTc Int : 481 ms NORMAL SINUS RHYTHM MINIMAL VOLTAGE CRITERIA FOR LVH, MAY BE NORMAL VARIANT T WAVE ABNORMALITY, CONSIDER LATERAL ISCHEMIA PROLONGED QT ABNORMAL ECG WHEN COMPARED WITH ECG OF 21-APR-2017 15:15, NO SIGNIFICANT CHANGE WAS FOUND Confirmed by NAVIN GODOY MD ([id number]) on 04/23/2017 12:46:50 PM Referred By: Confirmed By:NAVIN GODOY MD
[2017-04-23] MEDS: chlordiazePOXIDE 5 MG CAPSULE PO SCH ×2 (17:36→22:10)
[2017-04-23] MEDS: THIAMINE HCL 100 MG TABLET (FP) PO SCH (22:10)
[2017-04-23] MEDS: traZODone HCL 100 MG TABLET (FP) PO SCH (22:10)
[2017-04-24] MEDS: chlordiazePOXIDE 5 MG CAPSULE PO SCH ×2 (05:35→10:56)
[2017-04-24] MEDS: GABAPENTIN 300 MG CAPSULE (FP) PO SCH (05:39)
[2017-04-24 10:29] VITALS: BP 96/57; PULSE 102; TEMP 97.7
[2017-04-24] MEDS: PETROLATUM, WHITE 30 GM TUBE TP SCH (10:56)
[2017-04-24] MEDS: LISINOPRIL 10 MG TABLET (FP) PO SCH (10:56)
[2017-04-24] MEDS: PRENATAL VITAMINS W/ FOLIC ACID TABLET (FP) PO SCH (10:56)
--- NOTE | 2017-04-24 11:15 | PN ---
[facility] Progress Note (SOAP) Subjective: anxiety sweats Objective: 04/24/17 11:14 Vital Signs Temperature 97.7 F 04/24/17 10:00 Pulse Rate 102 H 04/24/17 10:00 Respiratory Rate 16 04/24/17 10:00 Blood Pressure 96/57 04/24/17 10:00 O2 Sat by Pulse Oximetry (%) aaox3 ambulating no acute distress Assessment: 04/24/17 11:15 withdrawal sx Plan: continue detox increase fluids d/c in am
--- NOTE | 2017-04-24 13:09 | PN ---
S Progress Note Note: Patient is stable, no withdrawals noted. Will be discharge today as per patient' s request.
--- NOTE | 2017-04-24 13:12 | DS ---
[facility] Detox Discharge Summary Admission Date: 04/21/17 Discharge Date: 04/24/17 - History Present History: Alcohol Dependence, Cannabis Dependence, Cocaine Dependence, Opioid Dependence - Physical Exam Results Vital Signs: Vital Signs Temperature 97.7 F 04/24/17 10:00 Pulse Rate 102 H 04/24/17 10:00 Respiratory Rate 16 04/24/17 10:00 Blood Pressure 96/57 04/24/17 10:00 O2 Sat by Pulse Oximetry (%) - Treatment Hospital Course: Detox Protocol Followed, Detoxed Safely, Responded well, Discharged Condition Good, Rehab Referral Accepted - Medication Discharge Medications: Ambulatory Orders Lisinopril 10 mg PO DAILY #30 tab 01/26/17 Gabapentin [Neurontin -] 300 mg PO TID #90 capsule 04/22/17 Trazodone HCl [Desyrel -] 100 mg PO HS #30 tablet 04/22/17 - Diagnosis (1) Alcohol dependence with uncomplicated withdrawal Current Visit: Yes Status: Chronic (2) Cannabis dependence Current Visit: Yes Status: Chronic (3) Cocaine dependence Current Visit: Yes Status: Acute Qualifiers: Substance use status: uncomplicated Qualified Code(s): F14.20 - Cocaine dependence, uncomplicated (4) Nicotine dependence Current Visit: Yes Status: Chronic Qualifiers: Nicotine product type: cigarettes Substance use status: uncomplicated Qualified Code(s): F17.210 - Nicotine dependence, cigarettes, uncomplicated (5) Opioid abuse Current Visit: Yes Status: Acute (6) Substance-induced sleep disorder Current Visit: Yes Status: Acute (7) Hypertension Current Visit: Yes Status: Chronic Qualifiers: Hypertension type: essential hypertension Qualified Code(s): I10 - Essential (primary) hypertension (8) PPD positive, treated Current Visit: Yes Status: Chronic (9) PTSD (post-traumatic stress disorder) Current Visit: Yes Status: Chronic (10) Insomnia Current Visit: No Status: Acute (11) Substance induced mood disorder Current Visit: No Status: Acute (12) Bilateral bunions Current Visit: No Status: Chronic (13) Tinea pedis Current Visit: No Status: Chronic Qualifiers: Laterality: bilateral Qualified Code(s): B35.3 - Tinea pedis - AMA Did Patient Leave Against Medical Advice: No (Patient discharge home)
[2017-04-24] MEDS ORDERED: chlordiazePOXIDE HCL 10 MG CAPSULE PO SCH (17:00)
== END 2017-04-24 13:40 | disposition home or self-care (01) | DRG 773 ==
LOC: YASAS 10:53 → Y6N 13:51
PROVIDERS: ADMIT Internal Medicine; ATTEND Internal Medicine
PROC: HZ2ZZZZ Detoxification Services for Substance Abuse Treatment (ICD-10-PCS; principal; 2017-04-21)
DX: F11.20 Opioid dependence, uncomplicated (principal); F10.230 Alcohol dependence with withdrawal, uncomplicated; F14.20 Cocaine dependence, uncomplicated; F12.20 Cannabis dependence, uncomplicated; F17.210 Nicotine dependence, cigarettes, uncomplicated; F19.282 Other psychoactive substance dependence with psychoactive substance-induced sleep disorder; F19.24 Other psychoactive substance dependence with psychoactive substance-induced mood disorder; F43.10 Post-traumatic stress disorder, unspecified; I10 Essential (primary) hypertension; B35.3 Tinea pedis; M21.611 Bunion of right foot; Z59.0 Homelessness
CPT/HCPCS: 36415; 80053; 81003; 81015; 85027; 86593; 87389; 93005; 93010

== ENCOUNTER 2017-08-29 15:11 | Inpatient (IN) | payer BC ==
[2017-08-29 16:21] VITALS: BMI 21.2
--- NOTE | 2017-08-29 20:30 | HP ---
CIWA Score - CIWA Score Nausea/Vomitin (x 2) Muscle Tremors: 4-Moderate,w/Arms Extend Anxiety: 4-Mod. Anxious/Guarded Agitation: 1-Slight > Activity Paroxysmal Sweats: No Perspiration Orientation: 1-Uncertain about Date Tacttile Disturbances: 0-None Auditory Disturbances: 0-None Visual Disturbances: 0-None Headache: 2-Mild CIWA-Ar Total Score: 15 Admission ROS S - HPI Chief Complaint: Alcohol withdrawal symptoms Allergies/Adverse Reactions: Allergies Allergy/AdvReac Type Severity Reaction Status Date / Time No Known Allergies Allergy Verified 08/29/17 19:37 History of Present Illness: 52 years old female with a long history of alcohol dependence is seeking admission to detox. Patient has been in previous detox and reports 5 years of sobriety. She has medical history of HTN, anemia, hyperlipidemia, right knee pain and depression. She denies suicide attempt and suicidal ideation at this time. Exam Limitations: No Limitations - Ebola screening Have you traveled outside of the country in the last 21 days: No Have you had contact with anyone from an Ebola affected area: No Have you been sick,other than usual withdrawal symptoms: No Do you have a fever: No - Review of Systems Constitutional: Chills, Loss of Appetite, Malaise, Night Sweats, Changes in sleep, Unexplained wgt Loss (reports 10lbs weight loss) EENT: reports: No Symptoms Reported Respiratory: reports: No Symptoms reported Cardiac: reports: No Symptoms Reported GI: reports: No Symptoms Reported : reports: No Symptoms Reported Musculoskeletal: reports: Back Pain Integumentary: reports: Dryness, Flushing Neuro: reports: Tingling, Tremors Endocrine: reports: No Symptoms Reported Hematology: reports: Anemia Psychiatric: reports: Mood/Affect Appropiate, Anxious, Depressed Other Systems: Reviewed and Negative Patient History - Patient Medical History Hx Anemia: Yes (Not on medication) Hx Asthma: No Hx Chronic Obstructive Pulmonary Disease (COPD): No Hx Cancer: No Hx Cardiac Disorders: No Hx Congestive Heart Failure: No Hx Hypertension: Yes (Clonidine) Hx Hypercholesterolemia: Yes (Not on medication) Hx Pacemaker: No HX Cerebrovascular Accident: No Hx Seizures: No Hx Dementia: No Hx Diabetes: No Hx Gastrointestinal Disorders: No Hx Liver Disease: No Hx Genitourinary Disorders: No Hx Sexually Transmitted Disorders: No Hx Renal Disease (ESRD): No Hx Thyroid Disease: No Hx Human Immunodeficiency Virus (HIV): No (Negative 2016) Hx Hepatitis C: No Hx Depression: Yes (Seroquel, lithium) Hx Suicide Attempt: No (Denies sucidal ideation at this time) Hx Bipolar Disorder: No Hx Schizophrenia: No - Patient Surgical History Past Surgical History: Yes Hx Neurologic Surgery: No Hx Cataract Extraction: No Hx Cardiac Surgery: No Hx Lung Surgery: No Hx Breast Surgery: No Hx Breast Biopsy: No Hx Abdominal Surgery: Yes (total hysterectomy in 2014 fibroids) Hx Appendectomy: No Hx Cholecystectomy: No Hx Genitourinary Surgery: No Hx Section: No Hx Orthopedic Surgery: Yes (Right knee surgery 1992) Hx Hysterectomy: No Other Surgical History: Anesthesia Reaction: No - PPD History Previous Implant?: Yes Documented Results: Positive w/o proof Date: 04/16/83 PPD to be Administered?: No - Reproductive History Patient is a Female of Child Bearing Age (11 -55 yrs old): No (MALE) - Smoking Cessation Smoking history: Current every day smoker Have you smoked in the past 12 months: Yes Aproximately how many cigarettes per day: 2 Hx Chewing Tobacco Use: No Initiated information on smoking cessation: Yes 'Breaking Loose' booklet given: 08/29/17 - Substance & Tx. History Hx Alcohol Use: Yes Hx Substance Use: Yes Substance Use Type: Alcohol, Cocaine, Marijuana Hx Substance Use Treatment: Yes ([facility]) - Substances Abused Alcohol Route: Oral Frequency: Daily Amount used: 3 PINTS Age of first use: 19 Date of Last Use: 08/29/17 Crack Route: Smoking Frequency: Daily Amount used: $100 Age of first use: 19 Date of Last Use: 08/29/17 Family Disease History - Family Disease History Family Disease History: Other: Father (, etoh), Mother (, drug overdose), Brother (two - healthy) Admission Physical Exam [facility]HS - Vital Signs Vital Signs: Vital Signs - 24 hr 08/29/17 16:19 Temperature 97.4 F L Pulse Rate 74 Respiratory 20 Rate Blood Pressure 141/97 - Physical General Appearance: Yes: Moderate Distress, Tremorous, Irritable, Sweating HEENTM: Yes: Normal ENT Inspection, Normocephalic, Normal Voice, JAIMEE, Other ( missing upper teeth) Respiratory: Yes: Lungs Clear, Normal Breath Sounds, No Respiratory Distress Neck: Yes: Supple Breast: Yes: Breast Exam Deferred Cardiology: Yes: Regular Rhythm, Regular Rate, S1, S2 Abdominal: Yes: Normal Bowel Sounds, Soft Genitourinary: Yes: Within Normal Limits Back: Yes: Normal Inspection Musculoskeletal: Yes: Within Normal Limits Extremities: Yes: Normal Inspection Neurological: Yes: Alert, Normal Mood/Affect Integumentary: Yes: Warm Lymphatic: Yes: Within Normal Limits - Diagnostic (1) Anemia Current Visit: Yes Status: Acute Qualifiers: Anemia type: unspecified type Qualified Code(s): D64.9 - Anemia, unspecified (2) Depression Current Visit: Yes Status: Chronic (3) Cocaine dependence Current Visit: Yes Status: Chronic Qualifiers: Substance use status: uncomplicated Qualified Code(s): F14.20 - Cocaine dependence, uncomplicated (4) Alcohol dependence with uncomplicated withdrawal Current Visit: No Status: Chronic (5) Cannabis dependence Current Visit: Yes Status: Chronic (6) Hypertension Current Visit: No Status: Chronic Qualifiers: Hypertension type: essential hypertension Qualified Code(s): I10 - Essential (primary) hypertension (7) Nicotine dependence Current Visit: Yes Status: Chronic Qualifiers: Nicotine product type: cigarettes Substance use status: uncomplicated Qualified Code(s): F17.210 - Nicotine dependence, cigarettes, uncomplicated (8) Hyperlipemia Current Visit: Yes Status: Chronic BHS Breath Alcohol Content Breath Alcohol Content: 0 Urine Pregancy Test - Result Urine Test Results: Negative- NO Line Present Urine Drug Screen - Results Drug Screen Negative: No Urine Drug Screen Results: THC-Marijuana, ELI-Cocaine, BZO-Benzodiazepines
[2017-08-29] MEDS ORDERED: P-EPHED 60MG/TRIPROLIDI 2.5MG TABLET PO PRN (20:49)
[2017-08-29] MEDS ORDERED: IBUPROFEN 400 MG TABLET (FP) PO PRN (20:49)
[2017-08-29] MEDS ORDERED: NICOTINE POLACRILEX 2 MG GUM BC PRN (20:49)
[2017-08-29] MEDS ORDERED: MENTHOL/PHENOL 1 EACH UD MM PRN (20:49)
[2017-08-29] MEDS ORDERED: LOPERAMIDE HCL 2 MG CAPSULE PO PRN (20:49)
[2017-08-29] MEDS ORDERED: MAG HYDROX/AL HYDROX/SIMETH 30 ML UNIT-DOSE CUP PO PRN (20:49)
[2017-08-29] MEDS ORDERED: guaiFENesin/D-METHORPHAN HB 10 ML UNIT-DOSE CUPS PO PRN (20:49)
[2017-08-29] MEDS ORDERED: MAGNESIUM HYDROX 2400MG/30ML ORAL SUSPENSION 30 ML CUP PO PRN (20:49)
[2017-08-29] MEDS ORDERED: ACETAMINOPHEN 325 MG TABLET (FP) PO PRN (20:49)
[2017-08-29] MEDS ORDERED: chlordiazePOXIDE HCL 25 MG CAPSULE PO PRN (20:49)
[2017-08-29] MEDS ORDERED: MAGNESIUM CITRATE 300 ML BOTTLE PO PRN (20:49)
[2017-08-29] MEDS ORDERED: MELATONIN 5 MG TABLETS PO PRN (22:00)
[2017-08-29] MEDS: GABAPENTIN 300 MG CAPSULE (FP) PO SCH (22:42)
[2017-08-29] MEDS: THIAMINE HCL 100 MG TABLET (FP) PO SCH (22:42)
[2017-08-29] MEDS: chlordiazePOXIDE HCL 25 MG CAPSULE PO SCH (22:43)
[2017-08-29 23:36] LABS: URINE APPEARANCE CLEAR; URINE BILIRUBIN NEGATIVE (<2.0 mg/dL); URINE COLOR YELLOW; URINE GLUCOSE (UA) NEGATIVE (NEGATIVE); URINE KETONE NEGATIVE (NEGATIVE); URINE LEUK ESTERASE TRACE (NEGATIVE); URINE NITRITE NEGATIVE (NEGATIVE); URINE PROTEIN NEGATIVE (NEGATIVE); URINE UROBILINOGEN 4.0 E.U/dl mg/dL (0.2-1.0)
[2017-08-29 23:41] LABS: EPI CELLS FEW /HPF (FEW); URINE MUCUS RARE
[2017-08-30] MEDS: chlordiazePOXIDE HCL 25 MG CAPSULE PO SCH ×4 (05:17→22:26)
[2017-08-30] MEDS: GABAPENTIN 300 MG CAPSULE (FP) PO SCH ×3 (05:18→22:26)
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
[2017-08-30] MEDS: PRENATAL VITAMINS W/ FOLIC ACID TABLET (FP) PO SCH (10:41)
[2017-08-30] MEDS: cloNIDine HCL 0.1 MG TABLET PO SCH (10:41)
[2017-08-30] MEDS: NICOTINE 14 MG/24 HOURS TOPICAL PATCH TD SCH (10:42)
[2017-08-30 11:00] LABS: HEMOGLOBIN 11.3 GM/dL (10.7-15.3); MEAN PLT VOLUME 9.2 fl (7.5-11.1)
[2017-08-30 11:03] LABS: HEMATOCRIT 33.3 % (32.4-45.2); MCH 32.5 pg (25.7-33.7); MEAN CELL VOLUME 95.7 fl (80-96); PLATELET COUNT 319 K/MM3 (134-434); RBC 3.48 M/mm3 (3.60-5.2); RDW 15.7 % (11.6-15.6)
--- NOTE | 2017-08-30 11:22 | PN ---
[facility] CIWA - CIWA Score Nausea/Vomitin Muscle Tremors: 3 Anxiety: 3 Agitation: 3 Paroxysmal Sweats: 1-Minimal Palms Moist Orientation: 0-Oriented Tacttile Disturbances: 1-Very Mild Itch/Numbness Auditory Disturbances: 1-Very Mild Visual Disturbances: 0-None Headache: 2-Mild CIWA-Ar Total Score: 17 BHS Progress Note (SOAP) Subjective: ALERT,IRRITABLE,ANXIOUS,INTERRUPTED SLEEP,TREMOR,PAIN IN THE BODY Objective: 08/30/17 11:19 Vital Signs Temperature 98.4 F 08/30/17 10:11 Pulse Rate 82 08/30/17 10:11 Respiratory Rate 16 08/30/17 10:11 Blood Pressure 111/73 08/30/17 10:11 O2 Sat by Pulse Oximetry (%) EKG NSR PROLONG QT 436/446 NO CHEST PAIN,NO SOB,NO DIZZINESS Laboratory Last Values WBC 6.0 K/mm3 (4.0-10.0) 08/30/17 07:00 RBC 3.48 M/mm3 (3.60-5.2) L D 08/30/17 07:00 Hgb 11.3 GM/dL (10.7-15.3) D 08/30/17 07:00 Hct 33.3 % (32.4-45.2) D 08/30/17 07:00 MCV 95.7 fl (80-96) 08/30/17 07:00 MCH 32.5 pg (25.7-33.7) 08/30/17 07:00 MCHC 34.0 g/dl (32.0-36.0) 08/30/17 07:00 RDW 15.7 % (11.6-15.6) H 08/30/17 07:00 Plt Count 319 K/MM3 (134-434) D 08/30/17 07:00 MPV 9.2 fl (7.5-11.1) 08/30/17 07:00 Urine Color Yellow 08/29/17 23:20 Urine Appearance Clear 08/29/17 23:20 Urine pH 7.0 (5.0-8.0) 08/29/17 23:20 Ur Specific [place] 1.021 (1.001-1.035) 08/29/17 23:20 Urine Protein Negative (NEGATIVE) 08/29/17 23:20 Urine Glucose (UA) Negative (NEGATIVE) 08/29/17 23:20 Urine Ketones Negative (NEGATIVE) 08/29/17 23:20 Urine Blood 2+ (NEGATIVE) H 08/29/17 23:20 Urine Nitrite Negative (NEGATIVE) 08/29/17 23:20 Urine Bilirubin Negative (<2.0 mg/dL) 08/29/17 23:20 Urine Urobilinogen 4.0 e.u/dl mg/dL (0.2-1.0) H 08/29/17 23:20 Ur Leukocyte Esterase Trace (NEGATIVE) 08/29/17 23:20 Urine WBC (Auto) 6 /hpf (3-5) 08/29/17 23:20 Urine RBC (Auto) 31 /hpf (0-3) 08/29/17 23:20 Ur Epithelial Cells Few /HPF (FEW) 08/29/17 23:20 Urine Mucus Rare 08/29/17 23:20 LABS PENDING Assessment: 08/30/17 11:21 WITHDRAWAL SYMPTOM Plan: CONTINUE DETOX,ENCOURAGE ORAL FLUID,REPEAT UA
--- NOTE | 2017-08-30 12:01 | EKG ---
Test Reason : Blood Pressure : / mmHG Vent. Rate : 063 BPM Atrial Rate : 063 BPM P-R Int : 136 ms QRS Dur : 080 ms QT Int : 436 ms P-R-T Axes : 023 053 060 degrees QTc Int : 446 ms NORMAL SINUS RHYTHM NORMAL ECG WHEN COMPARED WITH ECG OF 21-APR-2017 17:20, T WAVE INVERSION NO LONGER EVIDENT IN LATERAL LEADS Confirmed by CHARLIE CALIXTO, REMI ([id number]) on 08/30/2017 12:01:03 PM Referred By: Confirmed By:REMI GUERRA MD
[2017-08-30 12:10] LABS: CHLORIDE 107 mmol/L (98-107); POTASSIUM 3.9 mmol/L (3.5-5.1); SODIUM 142 mmol/L (136-145)
[2017-08-30 12:35] LABS: ALBUMIN 3.1 g/dl (3.4-5.0); ALK PHOS 86 U/L (45-117); ANION GAP 9 (8-16); BILIRUBIN,TOTAL 0.1 mg/dL (0.2-1.0); BLOOD UREA NITROGEN 14 mg/dL (7-18); CALCIUM 8.3 mg/dL (8.5-10.1); CO2 26 mmol/L (21-32); CREATININE 0.8 mg/dL (0.55-1.02); GLUCOSE,RANDOM 91 mg/dL (74-106); SGOT/AST 34 U/L (15-37); SGPT/ALT 41 U/L (12-78)
[2017-08-30] MEDS: QUEtiapine FUMARATE 100 MG TABLET (FP) PO SCH (22:25)
[2017-08-30] MEDS: THIAMINE HCL 100 MG TABLET (FP) PO SCH (22:26)
[2017-08-31] MEDS: chlordiazePOXIDE HCL 25 MG CAPSULE PO SCH ×3 (05:27→17:53)
[2017-08-31] MEDS: GABAPENTIN 300 MG CAPSULE (FP) PO SCH ×3 (05:27→22:23)
[2017-08-31] MEDS: PRENATAL VITAMINS W/ FOLIC ACID TABLET (FP) PO SCH (10:40)
[2017-08-31] MEDS: cloNIDine HCL 0.1 MG TABLET PO SCH (10:40)
--- NOTE | 2017-08-31 10:41 | PN ---
S CIWA - CIWA Score Nausea/Vomitin Muscle Tremors: 3 Anxiety: 3 Agitation: 2 Paroxysmal Sweats: 1-Minimal Palms Moist Orientation: 0-Oriented Tacttile Disturbances: 1-Very Mild Itch/Numbness Auditory Disturbances: 1-Very Mild Visual Disturbances: 0-None Headache: 2-Mild CIWA-Ar Total Score: 16 BHS Progress Note (SOAP) Subjective: ALERT,IRRITABLE,ANXIOUS,INTERRUPTED SLEEP,TREMOR,,PAIN IN THE BODY Objective: 08/31/17 10:38 Vital Signs Temperature 97.9 F 08/31/17 09:42 Pulse Rate 79 08/31/17 09:42 Respiratory Rate 18 08/31/17 09:42 Blood Pressure 120/88 08/31/17 09:42 O2 Sat by Pulse Oximetry (%) Laboratory Last Values WBC 6.0 K/mm3 (4.0-10.0) 08/30/17 07:00 RBC 3.48 M/mm3 (3.60-5.2) L D 08/30/17 07:00 Hgb 11.3 GM/dL (10.7-15.3) D 08/30/17 07:00 Hct 33.3 % (32.4-45.2) D 08/30/17 07:00 MCV 95.7 fl (80-96) 08/30/17 07:00 MCH 32.5 pg (25.7-33.7) 08/30/17 07:00 MCHC 34.0 g/dl (32.0-36.0) 08/30/17 07:00 RDW 15.7 % (11.6-15.6) H 08/30/17 07:00 Plt Count 319 K/MM3 (134-434) D 08/30/17 07:00 MPV 9.2 fl (7.5-11.1) 08/30/17 07:00 Sodium 142 mmol/L (136-145) 08/30/17 07:00 Potassium 3.9 mmol/L (3.5-5.1) 08/30/17 07:00 Chloride 107 mmol/L (98-107) 08/30/17 07:00 Carbon Dioxide 26 mmol/L (21-32) 08/30/17 07:00 Anion Gap 9 (8-16) 08/30/17 07:00 BUN 14 mg/dL (7-18) 08/30/17 07:00 Creatinine 0.8 mg/dL (0.55-1.02) 08/30/17 07:00 Creat Clearance w eGFR > 60 (>60) 08/30/17 07:00 Random Glucose 91 mg/dL (74-106) 08/30/17 07:00 Calcium 8.3 mg/dL (8.5-10.1) L 08/30/17 07:00 Total Bilirubin 0.1 mg/dL (0.2-1.0) L D 08/30/17 07:00 AST 34 U/L (15-37) 08/30/17 07:00 ALT 41 U/L (12-78) 08/30/17 07:00 Alkaline Phosphatase 86 U/L (45-117) 08/30/17 07:00 Total Protein 6.0 g/dl (6.4-8.2) L 08/30/17 07:00 Albumin 3.1 g/dl (3.4-5.0) L 08/30/17 07:00 Urine Color Yellow 08/29/17 23:20 Urine Appearance Clear 08/29/17 23:20 Urine pH 7.0 (5.0-8.0) 08/29/17 23:20 Ur Specific [place] 1.021 (1.001-1.035) 08/29/17 23:20 Urine Protein Negative (NEGATIVE) 08/29/17 23:20 Urine Glucose (UA) Negative (NEGATIVE) 08/29/17 23:20 Urine Ketones Negative (NEGATIVE) 08/29/17 23:20 Urine Blood 2+ (NEGATIVE) H 08/29/17 23:20 Urine Nitrite Negative (NEGATIVE) 08/29/17 23:20 Urine Bilirubin Negative (<2.0 mg/dL) 08/29/17 23:20 Urine Urobilinogen 4.0 e.u/dl mg/dL (0.2-1.0) H 08/29/17 23:20 Ur Leukocyte Esterase Trace (NEGATIVE) 08/29/17 23:20 Urine WBC (Auto) 6 /hpf (3-5) 08/29/17 23:20 Urine RBC (Auto) 31 /hpf (0-3) 08/29/17 23:20 Ur Epithelial Cells Few /HPF (FEW) 08/29/17 23:20 Urine Mucus Rare 08/29/17 23:20 RPR Titer Nonreactive (NONREACTIVE) 08/30/17 07:00 Assessment: 08/31/17 10:41 WITHDRAWAL SYMPTOM Plan: CONTINUE DTOX,
[2017-08-31] MEDS: NICOTINE 14 MG/24 HOURS TOPICAL PATCH TD SCH (10:42)
[2017-08-31 15:33] LABS: URINE APPEARANCE CLOUDY; URINE BILIRUBIN NEGATIVE (<2.0 mg/dL); URINE COLOR LTYELLOW; URINE GLUCOSE (UA) NEGATIVE (NEGATIVE); URINE KETONE NEGATIVE (NEGATIVE); URINE NITRITE NEGATIVE (NEGATIVE); URINE PROTEIN NEGATIVE (NEGATIVE); URINE UROBILINOGEN NEGATIVE mg/dL (0.2-1.0)
[2017-08-31 15:35] LABS: URINE LEUK ESTERASE 3+ (NEGATIVE)
[2017-08-31 15:43] LABS: EPI CELLS FEW /HPF (FEW); URINE MUCUS RARE
[2017-08-31] MEDS: THIAMINE HCL 100 MG TABLET (FP) PO SCH (22:23)
[2017-08-31] MEDS: QUEtiapine FUMARATE 100 MG TABLET (FP) PO SCH (22:23)
[2017-08-31] MEDS: chlordiazePOXIDE 5 MG CAPSULE PO SCH (22:43)
[2017-09-01] MEDS: chlordiazePOXIDE 5 MG CAPSULE PO SCH ×3 (05:21→17:39)
[2017-09-01] MEDS: GABAPENTIN 300 MG CAPSULE (FP) PO SCH ×3 (05:21→22:07)
[2017-09-01] MEDS: NICOTINE 14 MG/24 HOURS TOPICAL PATCH TD SCH (10:53)
[2017-09-01] MEDS: cloNIDine HCL 0.1 MG TABLET PO SCH (10:53)
[2017-09-01] MEDS: PRENATAL VITAMINS W/ FOLIC ACID TABLET (FP) PO SCH (10:53)
--- NOTE | 2017-09-01 15:27 | PN ---
BHS Progress Note (SOAP) Subjective: Sleep disturbance Sweats shakes Objective: 09/01/17 15:26 A & O x 3 Agitated Vital Signs Temperature 97.3 F L 09/01/17 13:57 Pulse Rate 84 09/01/17 13:57 Respiratory Rate 18 09/01/17 13:57 Blood Pressure 136/63 09/01/17 13:57 O2 Sat by Pulse Oximetry (%) Assessment: 09/01/17 15:26 withdrawal sx Plan: continue detox for d/c in a.m
[2017-09-01] MEDS: QUEtiapine FUMARATE 100 MG TABLET (FP) PO SCH (22:07)
[2017-09-01] MEDS: chlordiazePOXIDE HCL 10 MG CAPSULE PO SCH (22:07)
[2017-09-01] MEDS: THIAMINE HCL 100 MG TABLET (FP) PO SCH (22:07)
[2017-09-02] MEDS: GABAPENTIN 300 MG CAPSULE (FP) PO SCH (05:27)
[2017-09-02] MEDS: chlordiazePOXIDE HCL 10 MG CAPSULE PO SCH (05:27)
[2017-09-02 06:21] VITALS: BP 126/85; PULSE 77; TEMP 97.3
--- NOTE | 2017-09-02 08:27 | DS ---
[facility] Detox Discharge Summary Admission Date: 08/29/17 Discharge Date: 09/02/17 - History Present History: Alcohol Dependence, Cannabis Dependence, Cocaine Dependence - Physical Exam Results Vital Signs: Vital Signs Temperature 97.3 F L 09/02/17 06:00 Pulse Rate 77 09/02/17 06:00 Respiratory Rate 18 09/02/17 06:00 Blood Pressure 126/85 09/02/17 06:00 O2 Sat by Pulse Oximetry (%) - Treatment Hospital Course: Detox Protocol Followed, Detoxed Safely, Responded well, Discharged Condition Good, Rehab Referral Accepted - Medication Discharge Medications: Ambulatory Orders Clonidine HCl 0.2 mg PO DAILY 08/29/17 Gabapentin 600 mg PO TID 08/29/17 Quetiapine Fumarate [Seroquel] 100 tab PO HS #30 tablet 08/30/17 - Diagnosis (1) Alcohol dependence with uncomplicated withdrawal Current Visit: Yes Status: Chronic (2) Anemia Current Visit: Yes Status: Acute Qualifiers: Anemia type: unspecified type Qualified Code(s): D64.9 - Anemia, unspecified (3) History of anemia Current Visit: Yes Status: Acute (4) Neuropathy Current Visit: Yes Status: Acute (5) Cannabis dependence Current Visit: Yes Status: Chronic (6) Cocaine dependence Current Visit: Yes Status: Chronic Qualifiers: Substance use status: uncomplicated Qualified Code(s): F14.20 - Cocaine dependence, uncomplicated (7) Depression Current Visit: Yes Status: Chronic (8) Hyperlipemia Current Visit: Yes Status: Chronic (9) Nicotine dependence Current Visit: Yes Status: Chronic Qualifiers: Nicotine product type: cigarettes Substance use status: uncomplicated Qualified Code(s): F17.210 - Nicotine dependence, cigarettes, uncomplicated (10) Insomnia Current Visit: No Status: Acute (11) Opioid abuse Current Visit: No Status: Acute (12) Substance induced mood disorder Current Visit: No Status: Acute (13) Substance-induced sleep disorder Current Visit: No Status: Acute (14) Alcohol dependence with uncomplicated withdrawal Current Visit: No Status: Chronic (15) Bilateral bunions Current Visit: No Status: Chronic (16) Hypertension Current Visit: No Status: Chronic Qualifiers: Hypertension type: essential hypertension Qualified Code(s): I10 - Essential (primary) hypertension (17) PPD positive, treated Current Visit: No Status: Chronic (18) PTSD (post-traumatic stress disorder) Current Visit: No Status: Chronic (19) Tinea pedis Current Visit: No Status: Chronic Qualifiers: Laterality: bilateral Qualified Code(s): B35.3 - Tinea pedis - AMA Did Patient Leave Against Medical Advice: No
== END 2017-09-02 08:45 | disposition home or self-care (01) | DRG 773 ==
LOC: YASAS 15:11 → Y6N 18:57
PROVIDERS: ADMIT Surgery; ATTEND Surgery
PROC: HZ2ZZZZ Detoxification Services for Substance Abuse Treatment (ICD-10-PCS; principal; 2017-08-29)
DX: F11.20 Opioid dependence, uncomplicated (principal); F10.230 Alcohol dependence with withdrawal, uncomplicated; F14.20 Cocaine dependence, uncomplicated; F12.20 Cannabis dependence, uncomplicated; F17.210 Nicotine dependence, cigarettes, uncomplicated; F32.9 Major depressive disorder, single episode, unspecified; G47.00 Insomnia, unspecified; I10 Essential (primary) hypertension; E78.00 Pure hypercholesterolemia, unspecified; Z59.0 Homelessness
CPT/HCPCS: 36415; 71046-TC-FY; 80053; 81003; 81015; 85027; 86593; 93005; 93010; J0735

== ENCOUNTER 2022-02-22 11:27 | Inpatient (IN) | payer OTHER ==
[2022-02-22 11:59] VITALS: BMI 22.9
[2022-02-22] MEDS ORDERED: ONDANSETRON *ODT* 4 MG TABLET SL PRN (12:45)
[2022-02-22] MEDS ORDERED: MAGNESIUM CITRATE 300 ML BOTTLE PO PRN (12:45)
[2022-02-22] MEDS ORDERED: NICOTINE POLACRILEX 4 MG GUM BUC PRN (12:45)
[2022-02-22] MEDS ORDERED: MAG HYDROX/AL HYDROX/SIMETH 30 ML UNIT-DOSE CUP PO PRN (12:45)
[2022-02-22] MEDS ORDERED: BISMUTH SUBSALICYLATE 524 MG/30 ML PO PRN (12:45)
[2022-02-22] MEDS ORDERED: METHOCARBAMOL 500 MG TABLET PO PRN (12:45)
[2022-02-22] MEDS ORDERED: ACETAMINOPHEN 325 MG TABLET (FP) PO PRN ×2 (12:45)
[2022-02-22] MEDS ORDERED: LOPERAMIDE HCL 2 MG CAPSULE PO PRN (12:45)
[2022-02-22] MEDS ORDERED: NICOTINE 10 MG CARTRIDGE (INHALER) IH PRN (12:45)
[2022-02-22] MEDS ORDERED: chlordiazePOXIDE HCL 25 MG CAPSULE PO PRN (12:45)
[2022-02-22] MEDS ORDERED: IBUPROFEN 600 MG TABLET (FP) PO PRN (12:45)
[2022-02-22] MEDS ORDERED: MAGNESIUM HYDROX 2400MG/30ML ORAL SUSPENSION 30 ML CUP PO PRN (12:45)
[2022-02-22] MEDS ORDERED: IBUPROFEN 400 MG TABLET (FP) PO PRN (12:45)
[2022-02-22] MEDS ORDERED: NALOXONE HCL (KLOXXADO) 8 MG SPRAY NS PRN (12:45)
[2022-02-22] MEDS ORDERED: DICYCLOMINE HCL 10 MG CAPSULE PO PRN (12:45)
[2022-02-22] MEDS ORDERED: BENZOCAINE/MENTHOL (CHLORASEPTIC ) LOZENGE MM PRN (12:45)
[2022-02-22] MEDS ORDERED: hydrOXYzine PAMOATE 25 MG CAPSULE (FP) PO PRN (12:45)
[2022-02-22] MEDS ORDERED: chlordiazePOXIDE HCL 25 MG CAPSULE ONE (13:12)
[2022-02-22] MEDS ORDERED: chlordiazePOXIDE HCL 25 MG CAPSULE PO ONE (13:15)
[2022-02-22] MEDS: PRENATAL VITAMINS W/ FOLIC ACID TABLET (FP) PO SCH (14:34)
[2022-02-22] MEDS: GABAPENTIN 300 MG CAPSULE PO SCH ×2 (14:35→22:34)
[2022-02-22] MEDS: chlordiazePOXIDE HCL 25 MG CAPSULE PO SCH ×2 (17:25→22:34)
[2022-02-22 17:33] LABS: HEMATOCRIT 35.3 % (32.4-45.2); HEMOGLOBIN 11.8 GM/dL (10.7-15.3); MCH 30.3 pg (25.7-33.7); MCHC 33.3 g/dl (32.0-36.0); MEAN CELL VOLUME 90.8 fl (80-96); MEAN PLT VOLUME 9.2 fl (7.5-11.1); PLATELET COUNT 251 10^3/uL (134-434); RBC 3.89 M/mm3 (3.60-5.2); RDW 14.5 % (11.6-15.6)
[2022-02-22 17:35] LABS: ALBUMIN 4.2 g/dl (3.4-5.0); CALCIUM 9.7 mg/dL (8.5-10.1)
[2022-02-22 17:36] LABS: BLOOD UREA NITROGEN 21.4 mg/dL (7-18)
[2022-02-22 17:40] LABS: TOT PROT 7.3 g/dl (6.4-8.2)
[2022-02-22 17:41] LABS: BILIRUBIN,TOTAL 0.3 mg/dL (0.2-1)
[2022-02-22] MEDS ORDERED: MELATONIN 5 MG TABLETS PO SCH (22:00)
[2022-02-22] MEDS: THIAMINE HCL 100 MG TABLET (FP) PO SCH (22:34)
[2022-02-23] MEDS: chlordiazePOXIDE HCL 25 MG CAPSULE PO SCH ×4 (06:14→22:30)
[2022-02-23] MEDS: GABAPENTIN 300 MG CAPSULE PO SCH ×3 (06:15→22:30)
[2022-02-23] MEDS: PRENATAL VITAMINS W/ FOLIC ACID TABLET (FP) PO SCH (10:19)
[2022-02-23 18:06] VITALS: RESP 18
[2022-02-23] MEDS ORDERED: QUEtiapine FUMARATE 50 MG TABLET PO SCH (22:00)
[2022-02-23] MEDS: THIAMINE HCL 100 MG TABLET (FP) PO SCH (22:29)
[2022-02-24] MEDS: chlordiazePOXIDE HCL 25 MG CAPSULE PO SCH ×3 (06:21→17:42)
[2022-02-24] MEDS: GABAPENTIN 300 MG CAPSULE PO SCH ×2 (06:21→13:36)
[2022-02-24] MEDS: PRENATAL VITAMINS W/ FOLIC ACID TABLET (FP) PO SCH (10:15)
[2022-02-24 11:23] LABS: HEMOGLOBIN 12.5 GM/dL (10.7-15.3); MCH 30.5 pg (25.7-33.7); MCHC 33.8 g/dl (32.0-36.0); MEAN CELL VOLUME 90.2 fl (80-96); MEAN PLT VOLUME 9.2 fl (7.5-11.1); PLATELET COUNT 213 10^3/uL (134-434); RDW 14.7 % (11.6-15.6)
[2022-02-24 11:43] LABS: EPI CELLS 30 /uL (0-25.1); HYALINE CASTS 2 /uL (0-3.1); URINE APPEARANCE CLOUDY; URINE BACTERIA 326 /uL (0-1359); URINE BILIRUBIN NEGATIVE (NEGATIVE); URINE COLOR DK YELLOW; URINE GLUCOSE (UA) NEGATIVE (NEGATIVE); URINE KETONE TRACE (NEGATIVE); URINE LEUK ESTERASE TRACE (NEGATIVE); URINE NITRITE NEGATIVE (NEGATIVE); URINE PROTEIN TRACE (NEGATIVE); URINE UROBILINOGEN 0.2 mg/dL (0.2-1.0); URINE WBC 23 /uL (0-25.8)
[2022-02-24 12:18] LABS: URINE CRYSTALS CA OXALATE MANY /hpf; URINE RBC 175 /uL (0-23.9)
[2022-02-24 17:20] VITALS: BP 130/80; PULSE 87; TEMP 96.6
[2022-02-25] MEDS ORDERED: chlordiazePOXIDE HCL 10 MG CAPSULE PO PRN
[2022-02-25] MEDS ORDERED: chlordiazePOXIDE HCL 10 MG CAPSULE PO SCH (05:00)
[2022-02-26] MEDS ORDERED: chlordiazePOXIDE HCL 10 MG CAPSULE PO SCH (05:00)
[2022-02-27] MEDS ORDERED: chlordiazePOXIDE HCL 10 MG CAPSULE PO ONE (05:00)
== END 2022-02-24 17:35 | disposition left against medical advice (07) | DRG 770 ==
LOC: YASAS 11:27 → Y3N 13:29
PROVIDERS: ADMIT Allergy & Immunology; ATTEND Surgery
PROC: HZ2ZZZZ Detoxification Services for Substance Abuse Treatment (ICD-10-PCS; principal; 2022-02-22)
DX: F10.230 Alcohol dependence with withdrawal, uncomplicated (principal); F14.20 Cocaine dependence, uncomplicated; F17.210 Nicotine dependence, cigarettes, uncomplicated; F19.282 Other psychoactive substance dependence with psychoactive substance-induced sleep disorder; F19.24 Other psychoactive substance dependence with psychoactive substance-induced mood disorder; F39 Unspecified mood [affective] disorder; F43.10 Post-traumatic stress disorder, unspecified; E78.5 Hyperlipidemia, unspecified; Z87.820 Personal history of traumatic brain injury; Z28.310 Unvaccinated for COVID-19; Z28.9 Immunization not carried out for unspecified reason; Z56.0 Unemployment, unspecified; Z59.00 Homelessness unspecified; Z88.8 Allergy status to other drugs, medicaments and biological substances
CPT/HCPCS: 36415; 80053; 81003; 81025; 82140; 85027; 86780; C9803-CS; U0003; U0005

== ENCOUNTER 2022-04-02 09:32 | Inpatient (IN) | payer OTHER ==
[2022-04-02 10:54] VITALS: BMI 22.9
[2022-04-02] MEDS ORDERED: BENZOCAINE/MENTHOL (CHLORASEPTIC ) LOZENGE MM PRN (14:07)
[2022-04-02] MEDS ORDERED: NICOTINE 10 MG CARTRIDGE (INHALER) IH PRN (14:07)
[2022-04-02] MEDS ORDERED: NALOXONE HCL (KLOXXADO) 8 MG SPRAY NS PRN (14:07)
[2022-04-02] MEDS ORDERED: NICOTINE POLACRILEX 2 MG GUM BUC PRN (14:07)
[2022-04-02] MEDS ORDERED: LOPERAMIDE HCL 2 MG CAPSULE PO PRN (14:07)
[2022-04-02] MEDS ORDERED: DICYCLOMINE HCL 10 MG CAPSULE PO PRN (14:07)
[2022-04-02] MEDS ORDERED: POLYETHYLENE GLYCOL (HEALTHYLAX) 3350 17 GM PACKET PO PRN (14:07)
[2022-04-02] MEDS ORDERED: BISMUTH SUBSALICYLATE 524 MG/30 ML PO PRN (14:07)
[2022-04-02] MEDS ORDERED: chlordiazePOXIDE HCL 25 MG CAPSULE PO PRN (14:07)
[2022-04-02] MEDS ORDERED: hydrOXYzine PAMOATE 25 MG CAPSULE (FP) PO PRN (14:07)
[2022-04-02] MEDS ORDERED: MAGNESIUM HYDROX 2400MG/30ML ORAL SUSPENSION 30 ML CUP PO PRN (14:07)
[2022-04-02] MEDS ORDERED: ACETAMINOPHEN 325 MG TABLET (FP) PO PRN ×2 (14:07)
[2022-04-02] MEDS ORDERED: ONDANSETRON *ODT* 4 MG TABLET SL PRN (14:07)
[2022-04-02] MEDS: amLODIPine BESYLATE 10 MG TABLET (FP) PO SCH (15:18)
[2022-04-02] MEDS: MAG HYDROX/AL HYDROX/SIMETH 30 ML UNIT-DOSE CUP PO PRN (15:19)
[2022-04-02] MEDS: chlordiazePOXIDE HCL 25 MG CAPSULE PO SCH ×2 (18:03→22:15)
[2022-04-02] MEDS: METHOCARBAMOL 500 MG TABLET PO PRN (19:24)
[2022-04-02] MEDS: IBUPROFEN 600 MG TABLET (FP) PO PRN (19:24)
[2022-04-02] MEDS: THIAMINE HCL 100 MG TABLET (FP) PO SCH (22:14)
[2022-04-02] MEDS: VITAMINS A AND D TOPICAL OINTMENT 60 GM TUBE TP SCH (22:14)
[2022-04-02] MEDS: MELATONIN 5 MG TABLETS PO SCH (22:14)
[2022-04-02 22:56] LABS: EPI CELLS 31 /uL (0-25.1); HYALINE CASTS 2 /uL (0-3.1); PH,URINE 6.5 (5.0-8.0); URINE APPEARANCE CLEAR; URINE BACTERIA 268 /uL (0-1359); URINE BILIRUBIN NEGATIVE (NEGATIVE); URINE COLOR YELLOW; URINE GLUCOSE (UA) NEGATIVE (NEGATIVE); URINE KETONE 1+ (NEGATIVE); URINE LEUK ESTERASE TRACE (NEGATIVE); URINE NITRITE NEGATIVE (NEGATIVE); URINE PROTEIN 1+ (NEGATIVE); URINE WBC 51 /uL (0-25.8)
[2022-04-02 23:53] LABS: URINE RBC 349.1 /uL (0-23.9); YEAST NONE SEEN (NEGATIVE)
[2022-04-03] MEDS: chlordiazePOXIDE HCL 25 MG CAPSULE PO SCH ×4 (06:23→22:15)
[2022-04-03] MEDS: PRENATAL VITAMINS W/ FOLIC ACID TABLET (FP) PO SCH (10:11)
[2022-04-03] MEDS: amLODIPine BESYLATE 10 MG TABLET (FP) PO SCH (10:11)
[2022-04-03] MEDS: METHOCARBAMOL 500 MG TABLET PO PRN ×2 (10:11→22:15)
[2022-04-03] MEDS ORDERED: PANTOPRAZOLE 20 MG TABLET PO ONE (10:15)
[2022-04-03] MEDS: VITAMINS A AND D TOPICAL OINTMENT 60 GM TUBE TP SCH ×2 (10:16→22:18)
[2022-04-03 12:38] LABS: HEMATOCRIT 42.1 % (32.4-45.2); HEMOGLOBIN 13.6 GM/dL (10.7-15.3); MCH 29.5 pg (25.7-33.7); MCHC 32.3 g/dl (32.0-36.0); MEAN CELL VOLUME 91.1 fl (80-96); MEAN PLT VOLUME 9.7 fl (7.5-11.1); PLATELET COUNT 379 10^3/uL (134-434); RBC 4.63 M/mm3 (3.60-5.2); RDW 15.4 % (11.6-15.6); WHITE BLOOD COUNT 6.4 K/mm3 (4.0-10.0)
[2022-04-03 12:49] LABS: CALCIUM 9.7 mg/dL (8.5-10.1)
[2022-04-03 12:50] LABS: ALBUMIN 4.1 g/dl (3.4-5.0); BLOOD UREA NITROGEN 9.2 mg/dL (7-18)
[2022-04-03 12:53] LABS: CREATININE 0.8 mg/dL (0.55-1.3)
[2022-04-03 12:55] LABS: BILIRUBIN,TOTAL 0.6 mg/dL (0.2-1); TOT PROT 7.7 g/dl (6.4-8.2)
[2022-04-03] MEDS: MAG HYDROX/AL HYDROX/SIMETH 30 ML UNIT-DOSE CUP PO PRN ×2 (14:19→17:50)
[2022-04-03] MEDS: THIAMINE HCL 100 MG TABLET (FP) PO SCH (22:15)
[2022-04-03] MEDS: MELATONIN 5 MG TABLETS PO SCH (22:15)
[2022-04-04] MEDS: chlordiazePOXIDE HCL 25 MG CAPSULE PO SCH ×4 (05:56→22:12)
[2022-04-04] MEDS: MAG HYDROX/AL HYDROX/SIMETH 30 ML UNIT-DOSE CUP PO PRN (05:57)
[2022-04-04] MEDS: PRENATAL VITAMINS W/ FOLIC ACID TABLET (FP) PO SCH (10:05)
[2022-04-04] MEDS: IBUPROFEN 600 MG TABLET (FP) PO PRN (10:07)
[2022-04-04] MEDS: amLODIPine BESYLATE 10 MG TABLET (FP) PO SCH (10:51)
[2022-04-04] MEDS: VITAMINS A AND D TOPICAL OINTMENT 60 GM TUBE TP SCH ×2 (10:52→22:24)
[2022-04-04] MEDS: IBUPROFEN 400 MG TABLET (FP) PO PRN (15:24)
[2022-04-04] MEDS: METHOCARBAMOL 500 MG TABLET PO PRN (17:44)
[2022-04-04] MEDS ORDERED: QUEtiapine FUMARATE 50 MG TABLET PO SCH (22:00)
[2022-04-04] MEDS: THIAMINE HCL 100 MG TABLET (FP) PO SCH (22:12)
[2022-04-04] MEDS: GABAPENTIN 100 MG CAPSULE PO SCH (22:12)
[2022-04-04] MEDS: MELATONIN 5 MG TABLETS PO SCH (22:12)
[2022-04-05] MEDS ORDERED: chlordiazePOXIDE HCL 10 MG CAPSULE PO PRN
[2022-04-05] MEDS: chlordiazePOXIDE HCL 10 MG CAPSULE PO SCH ×2 (05:37→10:05)
[2022-04-05] MEDS: GABAPENTIN 100 MG CAPSULE PO SCH ×2 (05:37→13:46)
[2022-04-05 09:20] VITALS: TEMP 97.5
[2022-04-05] MEDS: PRENATAL VITAMINS W/ FOLIC ACID TABLET (FP) PO SCH (09:47)
[2022-04-05] MEDS: METHOCARBAMOL 500 MG TABLET PO PRN (09:48)
[2022-04-05] MEDS: IBUPROFEN 400 MG TABLET (FP) PO PRN (09:48)
[2022-04-05] MEDS: VITAMINS A AND D TOPICAL OINTMENT 60 GM TUBE TP SCH (10:08)
[2022-04-05] MEDS: MAG HYDROX/AL HYDROX/SIMETH 30 ML UNIT-DOSE CUP PO PRN (10:08)
[2022-04-05 12:58] VITALS: BP 117/84; PULSE 90; RESP 18
[2022-04-06] MEDS ORDERED: chlordiazePOXIDE HCL 10 MG CAPSULE PO SCH (05:00)
[2022-04-07] MEDS ORDERED: chlordiazePOXIDE HCL 10 MG CAPSULE PO ONE (05:00)
== END 2022-04-05 13:33 | disposition left against medical advice (07) | DRG 770 ==
LOC: SUATTDRO 09:32 → YASAS 09:32 → Y3N 14:12
PROVIDERS: ADMIT Allergy & Immunology; ATTEND Surgery
PROC: HZ2ZZZZ Detoxification Services for Substance Abuse Treatment (ICD-10-PCS; principal; 2022-04-02)
DX: F10.230 Alcohol dependence with withdrawal, uncomplicated (principal); F14.20 Cocaine dependence, uncomplicated; F17.210 Nicotine dependence, cigarettes, uncomplicated; F19.24 Other psychoactive substance dependence with psychoactive substance-induced mood disorder; F43.10 Post-traumatic stress disorder, unspecified; I10 Essential (primary) hypertension; E78.5 Hyperlipidemia, unspecified; G47.00 Insomnia, unspecified; Z28.310 Unvaccinated for COVID-19; Z86.11 Personal history of tuberculosis; Z88.8 Allergy status to other drugs, medicaments and biological substances; Z62.810 Personal history of physical and sexual abuse in childhood; Z56.0 Unemployment, unspecified; Z59.00 Homelessness unspecified
CPT/HCPCS: 36415; 71046-TC-FY; 80053; 81003; 81025; 85027; 86780; 87811; C9803-CS; U0003; U0005

== ENCOUNTER 2022-06-08 10:25 | Inpatient (IN) | payer OTHER ==
[2022-06-08 12:15] VITALS: BMI 22.4
[2022-06-08] MEDS ORDERED: NICOTINE 10 MG CARTRIDGE (INHALER) IH PRN (13:44)
[2022-06-08] MEDS ORDERED: BENZOCAINE/MENTHOL (CHLORASEPTIC ) LOZENGE MM PRN (13:44)
[2022-06-08] MEDS ORDERED: NICOTINE POLACRILEX 2 MG GUM BUC PRN (13:44)
[2022-06-08] MEDS ORDERED: LOPERAMIDE HCL 2 MG CAPSULE PO PRN (13:44)
[2022-06-08] MEDS ORDERED: BISMUTH SUBSALICYLATE 524 MG/30 ML PO PRN (13:44)
[2022-06-08] MEDS ORDERED: POLYETHYLENE GLYCOL (HEALTHYLAX) 3350 17 GM PACKET PO PRN (13:44)
[2022-06-08] MEDS ORDERED: ONDANSETRON *ODT* 4 MG TABLET SL PRN (13:44)
[2022-06-08] MEDS ORDERED: MAG HYDROX/AL HYDROX/SIMETH 30 ML UNIT-DOSE CUP PO PRN (13:44)
[2022-06-08] MEDS ORDERED: MAGNESIUM HYDROX 2400MG/30ML ORAL SUSPENSION 30 ML CUP PO PRN (13:44)
[2022-06-08] MEDS ORDERED: NICOTINE 7 MG/24 HOURS TOPICAL PATCH TD PRN (13:44)
[2022-06-08] MEDS ORDERED: DICYCLOMINE HCL 10 MG CAPSULE PO PRN (13:44)
[2022-06-08] MEDS ORDERED: NAPROXEN 375 MG TABLET PO PRN (13:49)
[2022-06-08] MEDS: METHOCARBAMOL 500 MG TABLET PO PRN ×2 (14:56→22:08)
[2022-06-08] MEDS: diazePAM 5 MG TABLET PO PRN (14:57)
[2022-06-08] MEDS: diazePAM 5 MG TABLET PO SCH ×3 (17:27→22:09)
[2022-06-08] MEDS ORDERED: MELATONIN 5 MG TABLETS PO SCH (22:00)
[2022-06-08] MEDS: MINERAL OIL/PETROLAT/WATER TOPICAL CREAM 113 GM JAR TP SCH (22:07)
[2022-06-08] MEDS: VITAMINS A AND D TOPICAL OINTMENT 60 GM TUBE TP SCH (22:08)
[2022-06-08] MEDS: THIAMINE HCL 100 MG TABLET (FP) PO SCH (22:09)
[2022-06-09] MEDS: diazePAM 5 MG TABLET PO SCH ×4 (06:12→22:09)
[2022-06-09] MEDS: METHOCARBAMOL 500 MG TABLET PO PRN ×2 (06:35→22:11)
[2022-06-09] MEDS: PRENATAL VITAMINS W/ FOLIC ACID TABLET (FP) PO SCH (10:19)
[2022-06-09] MEDS: MINERAL OIL/PETROLAT/WATER TOPICAL CREAM 113 GM JAR TP SCH ×2 (10:21→22:10)
[2022-06-09] MEDS: VITAMINS A AND D TOPICAL OINTMENT 60 GM TUBE TP SCH ×2 (10:21→22:10)
[2022-06-09 11:31] LABS: HEMATOCRIT 39.5 % (32.4-45.2); MCH 30.3 pg (25.7-33.7); MCHC 32.9 g/dl (32.0-36.0); MEAN CELL VOLUME 92.3 fl (80-96); MEAN PLT VOLUME 9.7 fl (7.5-11.1); PLATELET COUNT 301 10^3/uL (134-434); RBC 4.28 M/mm3 (3.60-5.2); RDW 14.5 % (11.6-15.6); WHITE BLOOD COUNT 6.7 K/mm3 (4.0-10.0)
[2022-06-09 12:22] LABS: CALCIUM 9.3 mg/dL (8.5-10.1)
[2022-06-09 12:23] LABS: ALBUMIN 3.9 g/dl (3.4-5.0)
[2022-06-09 12:25] LABS: URIC ACID 2.8 mg/dL (2.6-7.2)
[2022-06-09 12:26] LABS: CREATININE 0.7 mg/dL (0.55-1.3)
[2022-06-09 12:28] LABS: BILIRUBIN,TOTAL 0.4 mg/dL (0.2-1); TOT PROT 7.4 g/dl (6.4-8.2)
[2022-06-09] MEDS: GABAPENTIN 100 MG CAPSULE PO SCH ×2 (13:20→22:09)
[2022-06-09] MEDS: QUEtiapine FUMARATE 50 MG TABLET PO SCH (22:09)
[2022-06-09] MEDS: THIAMINE HCL 100 MG TABLET (FP) PO SCH (22:10)
[2022-06-10] MEDS: GABAPENTIN 100 MG CAPSULE PO SCH ×3 (05:18→21:34)
[2022-06-10] MEDS: diazePAM 5 MG TABLET PO SCH ×3 (05:18→22:19)
[2022-06-10] MEDS: PRENATAL VITAMINS W/ FOLIC ACID TABLET (FP) PO SCH (10:11)
[2022-06-10] MEDS: VITAMINS A AND D TOPICAL OINTMENT 60 GM TUBE TP SCH ×2 (10:12→22:18)
[2022-06-10] MEDS: MINERAL OIL/PETROLAT/WATER TOPICAL CREAM 113 GM JAR TP SCH ×2 (10:12→22:21)
[2022-06-10] MEDS: METHOCARBAMOL 500 MG TABLET PO PRN ×2 (10:14→17:48)
[2022-06-10] MEDS: diazePAM 5 MG TABLET PO PRN (10:14)
[2022-06-10] MEDS: hydrOXYzine PAMOATE 25 MG CAPSULE (FP) PO PRN (17:48)
[2022-06-10] MEDS ORDERED: IBUPROFEN 600 MG TABLET (FP) PO ONE (21:30)
[2022-06-10] MEDS: THIAMINE HCL 100 MG TABLET (FP) PO SCH (22:17)
[2022-06-10] MEDS: QUEtiapine FUMARATE 50 MG TABLET PO SCH (22:19)
[2022-06-11] MEDS: GABAPENTIN 100 MG CAPSULE PO SCH ×2 (05:30→14:04)
[2022-06-11] MEDS: METHOCARBAMOL 500 MG TABLET PO PRN ×2 (05:32→14:04)
[2022-06-11] MEDS ORDERED: diazePAM 5 MG TABLET PO SCH (06:00)
[2022-06-11] MEDS: hydrOXYzine PAMOATE 25 MG CAPSULE (FP) PO PRN (10:17)
[2022-06-11] MEDS: VITAMINS A AND D TOPICAL OINTMENT 60 GM TUBE TP SCH (10:17)
[2022-06-11] MEDS: PRENATAL VITAMINS W/ FOLIC ACID TABLET (FP) PO SCH (10:17)
[2022-06-11] MEDS: MINERAL OIL/PETROLAT/WATER TOPICAL CREAM 113 GM JAR TP SCH (10:17)
[2022-06-11] MEDS ORDERED: IBUPROFEN 600 MG TABLET (FP) PO ONE (10:30)
[2022-06-11 18:01] VITALS: BP 127/85; PULSE 84; RESP 17; TEMP 97.5
[2022-06-12] MEDS ORDERED: diazePAM 5 MG TABLET PO ONE (06:00)
== END 2022-06-11 17:14 | disposition home or self-care (01) | DRG 774 ==
LOC: YASAS 10:25 → Y6N 14:02
PROVIDERS: ADMIT Allergy & Immunology; ATTEND Surgery
PROC: HZ2ZZZZ Detoxification Services for Substance Abuse Treatment (ICD-10-PCS; principal; 2022-06-08)
DX: F10.230 Alcohol dependence with withdrawal, uncomplicated (principal); F14.20 Cocaine dependence, uncomplicated; F12.20 Cannabis dependence, uncomplicated; F17.210 Nicotine dependence, cigarettes, uncomplicated; F19.282 Other psychoactive substance dependence with psychoactive substance-induced sleep disorder; F31.9 Bipolar disorder, unspecified; F90.9 Attention-deficit hyperactivity disorder, unspecified type; G62.9 Polyneuropathy, unspecified; E78.5 Hyperlipidemia, unspecified; I10 Essential (primary) hypertension; M10.9 Gout, unspecified; Z62.810 Personal history of physical and sexual abuse in childhood; Z86.2 Personal history of diseases of the blood and blood-forming organs and certain disorders involving the immune mechanism; Z88.8 Allergy status to other drugs, medicaments and biological substances; Z99.89 Dependence on other enabling machines and devices; Z28.310 Unvaccinated for COVID-19; Z28.9 Immunization not carried out for unspecified reason
CPT/HCPCS: 36415; 80053; 84550; 85027; 86780; C9803-CS; U0003; U0005

== ENCOUNTER 2022-08-12 12:55 | Inpatient (IN) | payer OTHER ==
[2022-08-12 13:37] VITALS: BMI 24.3
[2022-08-12] MEDS ORDERED: BENZOCAINE/MENTHOL (CHLORASEPTIC ) LOZENGE MM PRN (14:01)
[2022-08-12] MEDS ORDERED: chlordiazePOXIDE HCL 25 MG CAPSULE PO PRN (14:01)
[2022-08-12] MEDS ORDERED: ONDANSETRON *ODT* 4 MG TABLET SL PRN (14:01)
[2022-08-12] MEDS ORDERED: guaiFENesin 600 MG TABLET.ER (FP) PO PRN (14:01)
[2022-08-12] MEDS ORDERED: BENZONATATE 200 MG CAPSULE PO PRN (14:01)
[2022-08-12] MEDS ORDERED: NICOTINE POLACRILEX 2 MG GUM BUC PRN (14:01)
[2022-08-12] MEDS ORDERED: LOPERAMIDE HCL 2 MG CAPSULE PO PRN (14:01)
[2022-08-12] MEDS ORDERED: hydrOXYzine PAMOATE 25 MG CAPSULE (FP) PO PRN (14:01)
[2022-08-12] MEDS ORDERED: MAGNESIUM HYDROX 2400MG/30ML ORAL SUSPENSION 30 ML CUP PO PRN (14:01)
[2022-08-12] MEDS ORDERED: NALOXONE HCL 0.4 MG/ML VIAL IM PRN (14:01)
[2022-08-12] MEDS ORDERED: NALOXONE HCL (KLOXXADO) 8 MG SPRAY NS PRN (14:01)
[2022-08-12] MEDS ORDERED: POLYETHYLENE GLYCOL (HEALTHYLAX) 3350 17 GM PACKET PO PRN (14:01)
[2022-08-12] MEDS ORDERED: DICYCLOMINE HCL 10 MG CAPSULE PO PRN (14:01)
[2022-08-12] MEDS ORDERED: MAG HYDROX/AL HYDROX/SIMETH 30 ML UNIT-DOSE CUP PO PRN (14:01)
[2022-08-12] MEDS ORDERED: ACETAMINOPHEN 325 MG TABLET (FP) PO PRN (14:01)
[2022-08-12] MEDS: chlordiazePOXIDE HCL 25 MG CAPSULE PO SCH ×2 (17:27→22:19)
[2022-08-12] MEDS ORDERED: QUEtiapine FUMARATE 100 MG TABLET (FP) PO SCH (22:00)
[2022-08-12] MEDS: GABAPENTIN 100 MG CAPSULE PO SCH (22:19)
[2022-08-12] MEDS: QUEtiapine FUMARATE 50 MG TABLET PO SCH (22:19)
[2022-08-12] MEDS: MELATONIN 5 MG TABLETS PO SCH (22:19)
[2022-08-12] MEDS: THIAMINE HCL 100 MG TABLET (FP) PO SCH (22:19)
[2022-08-13] MEDS: chlordiazePOXIDE HCL 25 MG CAPSULE PO SCH ×4 (05:56→22:54)
[2022-08-13] MEDS: GABAPENTIN 100 MG CAPSULE PO SCH ×3 (05:56→22:53)
[2022-08-13] MEDS: METHOCARBAMOL 500 MG TABLET PO PRN ×3 (05:59→22:53)
[2022-08-13] MEDS: PRENATAL VITAMINS W/ FOLIC ACID TABLET (FP) PO SCH (10:24)
[2022-08-13] MEDS: amLODIPine BESYLATE 10 MG TABLET (FP) PO SCH (10:24)
[2022-08-13 10:59] LABS: HEMATOCRIT 35.5 % (32.4-45.2); HEMOGLOBIN 11.7 GM/dL (10.7-15.3); MCHC 33.1 g/dl (32.0-36.0); MEAN CELL VOLUME 90.6 fl (80-96); MEAN PLT VOLUME 9.5 fl (7.5-11.1); PLATELET COUNT 269 10^3/uL (134-434); RBC 3.91 M/mm3 (3.60-5.2); RDW 14.6 % (11.6-15.6); WHITE BLOOD COUNT 4.8 K/mm3 (4.0-10.0)
[2022-08-13 11:03] LABS: BLOOD UREA NITROGEN 10.6 mg/dL (7-18); CALCIUM 8.9 mg/dL (8.5-10.1)
[2022-08-13 11:06] LABS: CREATININE 0.7 mg/dL (0.55-1.3)
[2022-08-13 11:08] LABS: BILIRUBIN,TOTAL 0.3 mg/dL (0.2-1); TOT PROT 5.9 g/dl (6.4-8.2)
[2022-08-13] MEDS: QUEtiapine FUMARATE 50 MG TABLET PO SCH (22:53)
[2022-08-13] MEDS: THIAMINE HCL 100 MG TABLET (FP) PO SCH (22:54)
[2022-08-13] MEDS: MELATONIN 5 MG TABLETS PO SCH (22:57)
[2022-08-14] MEDS: chlordiazePOXIDE HCL 25 MG CAPSULE PO SCH ×2 (05:36→10:02)
[2022-08-14] MEDS: GABAPENTIN 100 MG CAPSULE PO SCH (05:36)
[2022-08-14 09:22] VITALS: BP 122/72; PULSE 89; RESP 16; TEMP 98
[2022-08-14] MEDS: amLODIPine BESYLATE 10 MG TABLET (FP) PO SCH (10:02)
[2022-08-14] MEDS: PRENATAL VITAMINS W/ FOLIC ACID TABLET (FP) PO SCH (10:02)
[2022-08-15] MEDS ORDERED: chlordiazePOXIDE HCL 10 MG CAPSULE PO PRN
[2022-08-15] MEDS ORDERED: chlordiazePOXIDE HCL 10 MG CAPSULE PO SCH (05:00)
[2022-08-16] MEDS ORDERED: chlordiazePOXIDE HCL 10 MG CAPSULE PO SCH (05:00)
[2022-08-17] MEDS ORDERED: chlordiazePOXIDE HCL 10 MG CAPSULE PO ONE (05:00)
== END 2022-08-14 11:11 | disposition left against medical advice (07) | DRG 770 ==
LOC: YASAS 12:55 → Y3N 15:14
PROVIDERS: ADMIT Allergy & Immunology; ATTEND Surgery
PROC: HZ2ZZZZ Detoxification Services for Substance Abuse Treatment (ICD-10-PCS; principal; 2022-08-12)
DX: F10.230 Alcohol dependence with withdrawal, uncomplicated (principal); F14.20 Cocaine dependence, uncomplicated; F12.20 Cannabis dependence, uncomplicated; F17.210 Nicotine dependence, cigarettes, uncomplicated; F19.24 Other psychoactive substance dependence with psychoactive substance-induced mood disorder; F41.9 Anxiety disorder, unspecified; F32.A Depression, unspecified; I10 Essential (primary) hypertension; G47.00 Insomnia, unspecified; M54.50 Low back pain, unspecified; G89.29 Other chronic pain; Z87.820 Personal history of traumatic brain injury; Z56.0 Unemployment, unspecified; Z59.01 Sheltered homelessness; Z88.8 Allergy status to other drugs, medicaments and biological substances
CPT/HCPCS: 36415; 80053; 81025; 85027; 86780; 87811; 93005; 93010; C9803-CS; U0003; U0005

== ENCOUNTER 2022-08-21 15:07 | Inpatient (IN) | payer OTHER ==
[2022-08-21 16:11] VITALS: BMI 22.9
[2022-08-21] MEDS ORDERED: BISMUTH SUBSALICYLATE 524 MG/30 ML PO PRN (17:09)
[2022-08-21] MEDS ORDERED: BENZOCAINE/MENTHOL (CHLORASEPTIC ) LOZENGE MM PRN (17:09)
[2022-08-21] MEDS ORDERED: NICOTINE POLACRILEX 2 MG GUM BUC PRN (17:09)
[2022-08-21] MEDS ORDERED: ACETAMINOPHEN 325 MG TABLET (FP) PO PRN (17:09)
[2022-08-21] MEDS ORDERED: LOPERAMIDE HCL 2 MG CAPSULE PO PRN (17:09)
[2022-08-21] MEDS ORDERED: AMMONIUM LACTATE 12% LOTION 225 GM BOTTLE TP PRN (17:09)
[2022-08-21] MEDS ORDERED: BENZONATATE 200 MG CAPSULE PO PRN (17:09)
[2022-08-21] MEDS ORDERED: MAGNESIUM HYDROX 2400MG/30ML ORAL SUSPENSION 30 ML CUP PO PRN (17:09)
[2022-08-21] MEDS ORDERED: NALOXONE HCL 0.4 MG/ML VIAL IM PRN (17:09)
[2022-08-21] MEDS ORDERED: COLLOIDAL OATMEAL 1 BAR EACH TP PRN (17:09)
[2022-08-21] MEDS ORDERED: DICYCLOMINE HCL 10 MG CAPSULE PO PRN (17:09)
[2022-08-21] MEDS ORDERED: IBUPROFEN 600 MG TABLET (FP) PO PRN (17:09)
[2022-08-21] MEDS ORDERED: NALOXONE HCL (KLOXXADO) 8 MG SPRAY NS PRN (17:09)
[2022-08-21] MEDS ORDERED: MAG HYDROX/AL HYDROX/SIMETH 30 ML UNIT-DOSE CUP PO PRN (17:09)
[2022-08-21] MEDS ORDERED: POLYETHYLENE GLYCOL (HEALTHYLAX) 3350 17 GM PACKET PO PRN (17:09)
[2022-08-21] MEDS ORDERED: ONDANSETRON *ODT* 4 MG TABLET SL PRN (17:09)
[2022-08-21] MEDS ORDERED: NICOTINE 10 MG CARTRIDGE (INHALER) IH PRN (17:09)
[2022-08-21] MEDS ORDERED: IBUPROFEN 400 MG TABLET (FP) PO PRN (17:09)
[2022-08-21] MEDS ORDERED: METHOCARBAMOL 500 MG TABLET PO PRN (17:09)
[2022-08-21] MEDS: amLODIPine BESYLATE 10 MG TABLET (FP) PO SCH (17:31)
[2022-08-21] MEDS: diazePAM 5 MG TABLET PO SCH ×2 (17:31→22:19)
[2022-08-21] MEDS ORDERED: MELATONIN 5 MG TABLETS PO SCH (22:00)
[2022-08-21] MEDS: THIAMINE HCL 100 MG TABLET (FP) PO SCH (22:19)
[2022-08-22] MEDS: diazePAM 5 MG TABLET PO SCH ×4 (05:43→22:20)
[2022-08-22] MEDS ORDERED: P-EPHED 60MG/TRIPROLIDI 2.5MG TABLET PO PRN (09:32)
[2022-08-22] MEDS: amLODIPine BESYLATE 10 MG TABLET (FP) PO SCH (10:22)
[2022-08-22] MEDS: PRENATAL VITAMINS W/ FOLIC ACID TABLET (FP) PO SCH (10:22)
[2022-08-22] MEDS: guaiFENesin 600 MG TABLET.ER (FP) PO PRN (10:25)
[2022-08-22 12:32] LABS: HEMATOCRIT 35.5 % (32.4-45.2); HEMOGLOBIN 12.1 GM/dL (10.7-15.3); MCH 30.6 pg (25.7-33.7); MCHC 34.2 g/dl (32.0-36.0); MEAN CELL VOLUME 89.6 fl (80-96); MEAN PLT VOLUME 9.8 fl (7.5-11.1); PLATELET COUNT 220 10^3/uL (134-434); POTASSIUM 3.5 mmol/L (3.5-5.1); RBC 3.96 M/mm3 (3.60-5.2); RDW 14.9 % (11.6-15.6); WHITE BLOOD COUNT 3.9 K/mm3 (4.0-10.0)
[2022-08-22 12:34] LABS: BLOOD UREA NITROGEN 11.1 mg/dL (7-18)
[2022-08-22 12:37] LABS: ALBUMIN 2.8 g/dl (3.4-5.0); CALCIUM 8.7 mg/dL (8.5-10.1)
[2022-08-22 12:40] LABS: CREATININE 0.6 mg/dL (0.55-1.3)
[2022-08-22 12:41] LABS: BILIRUBIN,TOTAL 0.2 mg/dL (0.2-1); TOT PROT 5.9 g/dl (6.4-8.2)
[2022-08-22] MEDS: THIAMINE HCL 100 MG TABLET (FP) PO SCH (22:20)
[2022-08-22] MEDS: QUEtiapine FUMARATE 100 MG TABLET (FP) PO SCH (22:20)
[2022-08-23] MEDS: diazePAM 5 MG TABLET PO SCH ×3 (05:17→22:11)
[2022-08-23] MEDS: amLODIPine BESYLATE 10 MG TABLET (FP) PO SCH (10:17)
[2022-08-23] MEDS: PRENATAL VITAMINS W/ FOLIC ACID TABLET (FP) PO SCH (10:20)
[2022-08-23] MEDS ORDERED: guaiFENesin 200 MG/10 ML 10 ML UNIT-DOSE CUPS PO PRN (12:54)
[2022-08-23] MEDS: LACTULOSE 20 GM/30 ML UDC (FOR ORAL USE ONLY) PO SCH ×2 (13:38→22:12)
[2022-08-23] MEDS: guaiFENesin 600 MG TABLET.ER (FP) PO PRN (13:39)
[2022-08-23] MEDS: QUEtiapine FUMARATE 100 MG TABLET (FP) PO SCH (22:10)
[2022-08-23] MEDS: THIAMINE HCL 100 MG TABLET (FP) PO SCH (22:11)
[2022-08-24] MEDS: diazePAM 5 MG TABLET PO SCH ×2 (05:44→17:55)
[2022-08-24] MEDS: LACTULOSE 20 GM/30 ML UDC (FOR ORAL USE ONLY) PO SCH ×3 (05:44→22:04)
[2022-08-24] MEDS: PRENATAL VITAMINS W/ FOLIC ACID TABLET (FP) PO SCH (10:25)
[2022-08-24] MEDS: amLODIPine BESYLATE 10 MG TABLET (FP) PO SCH (10:25)
[2022-08-24 13:25] VITALS: RESP 18
[2022-08-24] MEDS: QUEtiapine FUMARATE 100 MG TABLET (FP) PO SCH (22:04)
[2022-08-24] MEDS: THIAMINE HCL 100 MG TABLET (FP) PO SCH (22:04)
[2022-08-25] MEDS: LACTULOSE 20 GM/30 ML UDC (FOR ORAL USE ONLY) PO SCH (05:27)
[2022-08-25 05:50] VITALS: BP 102/66; PULSE 73; TEMP 97.6
[2022-08-25] MEDS ORDERED: diazePAM 5 MG TABLET PO ONE (06:00)
== END 2022-08-25 09:04 | disposition home or self-care (01) | DRG 774 ==
LOC: YASAS 15:07 → Y6N 17:01
PROVIDERS: ADMIT Allergy & Immunology; ATTEND Surgery
PROC: HZ2ZZZZ Detoxification Services for Substance Abuse Treatment (ICD-10-PCS; principal; 2022-08-21)
DX: F10.230 Alcohol dependence with withdrawal, uncomplicated (principal); F14.20 Cocaine dependence, uncomplicated; F13.20 Sedative, hypnotic or anxiolytic dependence, uncomplicated; F12.20 Cannabis dependence, uncomplicated; F17.210 Nicotine dependence, cigarettes, uncomplicated; F19.282 Other psychoactive substance dependence with psychoactive substance-induced sleep disorder; F19.280 Other psychoactive substance dependence with psychoactive substance-induced anxiety disorder; F19.24 Other psychoactive substance dependence with psychoactive substance-induced mood disorder; F31.9 Bipolar disorder, unspecified; F43.10 Post-traumatic stress disorder, unspecified; R05.9 Cough, unspecified; Z62.810 Personal history of physical and sexual abuse in childhood; Z88.8 Allergy status to other drugs, medicaments and biological substances
CPT/HCPCS: 36415; 71045-TC-FY; 80053; 81025; 82140; 85027; 86780; 87811; C9803-CS; U0003; U0005

== ENCOUNTER 2023-10-15 19:10 | Inpatient (IN) | payer OTHER ==
[2023-10-15 19:39] VITALS: BMI 21.6
[2023-10-15] MEDS ORDERED: chlordiazePOXIDE HCL 25 MG CAPSULE PO PRN (22:11)
[2023-10-15] MEDS ORDERED: NICOTINE POLACRILEX 2 MG GUM BUC PRN (22:14)
[2023-10-15] MEDS ORDERED: MAGNESIUM HYDROX 2400MG/30ML ORAL SUSPENSION 30 ML CUP PO PRN (22:14)
[2023-10-15] MEDS ORDERED: P-EPHED 60MG/TRIPROLIDI 2.5MG TABLET PO PRN (22:14)
[2023-10-15] MEDS ORDERED: POLYETHYLENE GLYCOL (HEALTHYLAX) 3350 17 GM PACKET PO PRN (22:14)
[2023-10-15] MEDS ORDERED: BENZONATATE 200 MG CAPSULE PO PRN (22:14)
[2023-10-15] MEDS ORDERED: NICOTINE POLACRILEX 2 MG LOZENGE BC PRN (22:14)
[2023-10-15] MEDS ORDERED: MAG HYDROX/AL HYDROX/SIMETH 30 ML UNIT-DOSE CUP PO PRN (22:14)
[2023-10-15] MEDS ORDERED: BENZOCAINE/MENTHOL (CHLORASEPTIC ) LOZENGE MM PRN (22:14)
[2023-10-15] MEDS ORDERED: LOPERAMIDE HCL 2 MG CAPSULE PO PRN (22:14)
[2023-10-15] MEDS ORDERED: DICYCLOMINE HCL 10 MG CAPSULE PO PRN (22:14)
[2023-10-15] MEDS ORDERED: ONDANSETRON *ODT* 4 MG TABLET SL PRN (22:14)
[2023-10-15] MEDS ORDERED: guaiFENesin 600 MG TABLET.ER (FP) PO PRN (22:14)
[2023-10-15] MEDS: levETIRAcetam 500 MG TABLET (FP) PO SCH (23:38)
[2023-10-15] MEDS: chlordiazePOXIDE HCL 25 MG CAPSULE PO SCH (23:38)
[2023-10-16 09:44] VITALS: RESP 16
[2023-10-16] MEDS: PRENATAL VITAMINS W/ FOLIC ACID TABLET (FP) PO SCH (10:13)
[2023-10-16] MEDS: METHOCARBAMOL 500 MG TABLET PO PRN (10:13)
[2023-10-16 14:39] LABS: POTASSIUM 3.5 mmol/L (3.5-5.1)
[2023-10-16 14:42] LABS: CALCIUM 9.1 mg/dL (8.5-10.1)
[2023-10-16 14:43] LABS: ALBUMIN 3.7 g/dl (3.4-5.0); BLOOD UREA NITROGEN 12.6 mg/dL (7-18)
[2023-10-16 14:46] LABS: CREATININE 0.8 mg/dL (0.55-1.3)
[2023-10-16 14:47] LABS: TOT PROT 6.4 g/dl (6.4-8.2)
[2023-10-16 14:48] LABS: BILIRUBIN,TOTAL 0.3 mg/dL (0.2-1)
[2023-10-16 15:01] LABS: HEMATOCRIT 35.7 % (32.4-45.2); HEMOGLOBIN 11.9 GM/dL (10.7-15.3); MCH 30.3 pg (25.7-33.7); MCHC 33.4 g/dl (32.0-36.0); MEAN PLT VOLUME 9.6 fl (7.5-11.1); PLATELET COUNT 288 10^3/uL (134-434); RBC 3.92 M/mm3 (3.60-5.2); RDW 14.9 % (11.6-15.6)
[2023-10-16] MEDS: ACAMPROSATE CALCIUM 333 MG TABLET.DR PO SCH (15:09)
[2023-10-16] MEDS: ACETAMINOPHEN 325 MG TABLET (FP) PO PRN (15:44)
[2023-10-16 16:50] VITALS: BP 126/82; PULSE 67; TEMP 97.8
[2023-10-16] MEDS ORDERED: PHENYTOIN NA EXTENDED 100 MG CAPSULE (FP) PO SCH (22:00)
[2023-10-16] MEDS ORDERED: THIAMINE 100 MG TABLET PO SCH (22:00)
[2023-10-16] MEDS ORDERED: MELATONIN 5 MG TABLETS PO SCH (22:00)
[2023-10-16] MEDS ORDERED: QUEtiapine FUMARATE 100 MG TABLET (FP) PO SCH ×2 (22:00)
[2023-10-16] MEDS ORDERED: GABAPENTIN 400 MG CAPSULE PO SCH (22:00)
[2023-10-17] MEDS ORDERED: chlordiazePOXIDE HCL 25 MG CAPSULE PO SCH (05:00)
[2023-10-17] MEDS ORDERED: amLODIPine BESYLATE 10 MG TABLET (FP) PO SCH (10:00)
[2023-10-17] MEDS ORDERED: NAPROXEN 500 MG TABLET PO SCH (10:00)
[2023-10-18] MEDS ORDERED: chlordiazePOXIDE HCL 10 MG CAPSULE PO PRN
[2023-10-18] MEDS ORDERED: chlordiazePOXIDE HCL 10 MG CAPSULE PO SCH (05:00)
[2023-10-19] MEDS ORDERED: chlordiazePOXIDE HCL 10 MG CAPSULE PO SCH (05:00)
[2023-10-20] MEDS ORDERED: chlordiazePOXIDE HCL 10 MG CAPSULE PO ONE (05:00)
== END 2023-10-16 18:45 | disposition left against medical advice (07) | DRG 770 ==
LOC: YASAS 19:10 → Y6N 23:00
PROVIDERS: ADMIT Allergy & Immunology; ATTEND Surgery
PROC: HZ2ZZZZ Detoxification Services for Substance Abuse Treatment (ICD-10-PCS; principal; 2023-10-15)
DX: F10.230 Alcohol dependence with withdrawal, uncomplicated (principal); F13.20 Sedative, hypnotic or anxiolytic dependence, uncomplicated; F17.210 Nicotine dependence, cigarettes, uncomplicated; F31.9 Bipolar disorder, unspecified; F19.280 Other psychoactive substance dependence with psychoactive substance-induced anxiety disorder; F19.282 Other psychoactive substance dependence with psychoactive substance-induced sleep disorder; G40.909 Epilepsy, unspecified, not intractable, without status epilepticus; I10 Essential (primary) hypertension; K21.9 Gastro-esophageal reflux disease without esophagitis; Z62.810 Personal history of physical and sexual abuse in childhood; Z63.8 Other specified problems related to primary support group; Z88.8 Allergy status to other drugs, medicaments and biological substances
CPT/HCPCS: 36415; 71101-TC-LT-FY; 73070-TC-RT-FY; 80053; 80305; 80307; 81025; 85027; 86780; 99284-25

== ENCOUNTER 2023-10-16 13:01 | Emergency (ER) | payer OTHER ==
[2023-10-16 13:09] VITALS: BP 135/52; PULSE 64; RESP 18; TEMP 97.6; BMI 21.6
[2023-10-16] MEDS ORDERED: ACETAMINOPHEN 500 MG TABLET (FP) ONE (13:31)
[2023-10-16] MEDS ORDERED: LIDOCAINE 4% PATCH TP ONE (13:31)
[2023-10-16] MEDS: LIDOCAINE 4% PATCH TP ONE (13:33)
[2023-10-16] MEDS: ACETAMINOPHEN 500 MG TABLET (FP) PO ONE (13:33)
[2023-10-16] MEDS ORDERED: LIDOCAINE PATCH REMOVAL MC ONE (22:00)
== END 2023-10-16 14:15 | disposition home or self-care (01) ==
LOC: JERFT 13:01
DX: M25.521 Pain in right elbow (principal); R07.81 Pleurodynia; R51.9 Headache, unspecified; W01.198A Fall on same level from slipping, tripping and stumbling with subsequent striking against other object, initial encounter
CPT/HCPCS: 71101-TC-LT-FY; 73070-TC-RT-FY; 99284-25

== ENCOUNTER 2024-07-18 13:32 | Inpatient (IN) | payer OTHER ==
[2024-07-18] MEDS ORDERED: MAGNESIUM HYDROX 2400MG/30ML ORAL SUSPENSION 30 ML CUP PO PRN (17:12)
[2024-07-18] MEDS ORDERED: IBUPROFEN 600 MG TABLET (FP) PO PRN (17:12)
[2024-07-18] MEDS ORDERED: BENZONATATE 200 MG CAPSULE PO PRN (17:12)
[2024-07-18] MEDS ORDERED: NALOXONE HCL 0.4 MG/ML VIAL IVPUSH PRN (17:12)
[2024-07-18] MEDS ORDERED: guaiFENesin 600 MG TABLET.ER (FP) PO PRN (17:12)
[2024-07-18] MEDS ORDERED: NALOXONE (NARCAN) HCL 4 MG/0.1 ML SPRAY NS PRN (17:12)
[2024-07-18] MEDS ORDERED: LOPERAMIDE HCL 2 MG CAPSULE PO PRN (17:12)
[2024-07-18] MEDS ORDERED: MAG HYDROX/AL HYDROX/SIMETH 30 ML UNIT-DOSE CUP PO PRN (17:12)
[2024-07-18] MEDS ORDERED: IBUPROFEN 400 MG TABLET (FP) PO PRN (17:12)
[2024-07-18] MEDS ORDERED: POLYETHYLENE GLYCOL (HEALTHYLAX) 3350 17 GM PACKET PO PRN (17:12)
[2024-07-18] MEDS ORDERED: BENZOCAINE/MENTHOL (CHLORASEPTIC ) LOZENGE MM PRN (17:12)
[2024-07-18] MEDS: NAPROXEN 500 MG TABLET PO ONE (18:09)
[2024-07-18] MEDS: hydrOXYzine PAMOATE 25 MG CAPSULE (FP) PO PRN (18:12)
[2024-07-18] MEDS: QUEtiapine FUMARATE 50 MG TABLET PO SCH (22:02)
[2024-07-18] MEDS: GABAPENTIN 300 MG CAPSULE PO SCH (22:02)
[2024-07-18] MEDS: THIAMINE 100 MG TABLET PO SCH (22:03)
[2024-07-18] MEDS: METHYL SALICYLATE/MENTHOL 30 GM TUBE TP SCH (22:03)
[2024-07-18] MEDS: ACAMPROSATE CALCIUM 333 MG TABLET.DR PO SCH (22:03)
[2024-07-18] MEDS: MELATONIN 5 MG TABLETS PO SCH (22:05)
[2024-07-18] MEDS: LIDOCAINE PATCH REMOVAL MC SCH (22:05)
[2024-07-18] MEDS: ACETAMINOPHEN 325 MG TABLET (FP) PO PRN (22:08)
[2024-07-19] MEDS: METHOCARBAMOL 500 MG TABLET PO PRN (06:06)
[2024-07-19] MEDS: LOSARTAN POTASSIUM 50 MG TABLET PO SCH (10:40)
[2024-07-19] MEDS: busPIRone HCL 10 MG TABLET (FP) PO SCH (10:40)
[2024-07-19] MEDS: NAPROXEN 500 MG TABLET PO SCH (10:40)
[2024-07-19] MEDS: PRENATAL VITAMINS W/ FOLIC ACID TABLET (FP) PO SCH (10:40)
[2024-07-19] MEDS: LIDOCAINE 5% TOPICAL PATCH TP SCH (10:43)
[2024-07-19] MEDS: cloNIDine HCL 0.1 MG TABLET PO SCH (14:15)
[2024-07-19 14:36] LABS: HIV INTERPRETATION NEGATIVE (NEGATIVE)
[2024-07-19 14:38] LABS: HCV DIAGNOSTIC IN-HOUSE W/RFLX NON-REACTIVE (NONREACTIVE)
[2024-07-19] MEDS: VITAMINS A AND D TOPICAL OINTMENT TP SCH (18:55)
[2024-07-20] MEDS: BENZOCAINE 20 % GEL TUBE MM PRN (10:26)
[2024-07-21 12:33] VITALS: BP 152/94; PULSE 71; RESP 18; TEMP 97.8
== END 2024-07-21 10:35 | disposition left against medical advice (07) | DRG 770 ==
LOC: YASAS 13:32 → Y3NR 13:33
PROVIDERS: ADMIT Psychiatry & Neurology Pain Medicine; ATTEND Psychiatry & Neurology Pain Medicine
PROC: HZ42ZZZ Group Counseling for Substance Abuse Treatment, Cognitive-Behavioral (ICD-10-PCS; principal; 2024-07-18)
DX: F10.20 Alcohol dependence, uncomplicated (principal); F14.20 Cocaine dependence, uncomplicated; F17.210 Nicotine dependence, cigarettes, uncomplicated; F41.9 Anxiety disorder, unspecified; F43.10 Post-traumatic stress disorder, unspecified; F32.A Depression, unspecified; I10 Essential (primary) hypertension
CPT/HCPCS: 36415; 86803; 87389